=== PATIENT | male | born 1990 | race Caucasian/White ===

== ENCOUNTER 2023-11-12 08:30 | Outpatient (AMB) | payer BC, SELFPAY ==
--- NOTE | 2023-11-12 08:34 | MHC.PC.OV ---
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: No Allergies No Known Allergies Allergy (Verified 11/12/23 08:49) Medication List - Last Reconciled 11/12/23 by Dannielle Lemons CNP atorvastatin 20 mg PO BEDTIME coenzyme Q10 (CoQ-10) 100 mg PO DAILY multivitamin (Daily Multi-Vitamin tablet) 1 tab PO DAILY valacyclovir (Valtrex) 500 mg PO BID Tobacco use date assessed: 11/12/23 Dental Screening Dental Screen Date: 11/12/23 Did you have a dental visit in the last 12 months?: Yes Did you have a dental problem in the last 6 months where you did not have access to dental care?: No Was dental information given to patient?: Patient has dentist HPI HPI Comments History of Present Illness Details New patient Prior PCP:?[facility] Cesar Blair Last office visit/CPE: About 6-7 months Acute issue(s): Hyperlipidemia -He is on atorvastatin 20 mg daily at bedtime and CoQ-10 Herpes simplex 1 -He is on valacyclovir 500 BID PRN He notes that he generally eats and sleeps well. He does intermittent fasting. He does not exercise No acute symptoms at this time PMHx: Hyperlipidemia, herpes simplex 1, Gilbert's syndrome, astigmatism of both eyes SurgHx: Laser eye surgery ([place]) 2019 FHx: Dad: HTN, gout. Mother: depression SocHx: Nonsmoker. Drinks 1-2 cocktails 3 times monthly. No recreational drugs Last eye exam was about 3 years ago Last tetanus vaccine was in 2017 [facility] Family History (Updated 11/12/23 @ 08:43 by Edna Pollard) Mother FH: mental illness Social History Housing: House Patient Tobacco Use Status: Never used Tobacco e-Cigarette/Vaping Use: Never Used Second Hand Smoke Exposure: No service: No Current occupational status: unemployed Current occupation: [employer] Current occupational exposures/hazards: No Cognitive needs: No Hearing needs: No Vision needs: No Questionnaire PHQ-9 Over the last 2 weeks, how often have you been bothered by any of the following problems? 1. Little interest or pleasure in doing things: not at all 2. Feeling down, depressed, or hopeless: not at all 3. Trouble falling or staying asleep, or sleeping too much: not at all 4. Feeling tired or having little energy: not at all 5. Poor appetite or overeating: not at all 6. Feeling bad about yourself - or that you are a failure or have let yourself or your family down: not at all 7. Trouble concentrating on things, such as reading the newspaper or watching television: not at all 8. Moving or speaking so slowly that other people could have noticed. Or the opposite - being so fidgety or restless that you have been moving around a lot more than usual: not at all 9. Thoughts that you would be better off or of hurting yourself in some way: not at all Total score: 0 Depression Screening Interpretation: Negative Depression Screening Done: Yes 30552 - PHQ-9 Billing: Yes Source: Developed by Drs. Fish Daly, Annamarie Lewis, Woody Grayson and colleagues, with an educational cj from [employer]. Thrive Questionnaire Date Thrive assessed: 11/12/23 I am a: Patient What is your living situation today?: I have a steady place to live Within the past 12 months, did the food you bought not last and you didn't have the money to get more?: Never true Within the past 12 months, did you worry whether your food would run out before you got money to buy more?: Never true Do you have trouble paying for medicines?: No Do you have trouble getting transportation to medical appointments?: No Do you have trouble paying your heating and electricity bill?: No Do you have trouble taking care of your child, family member or friend?: No Do you have trouble with day-to-day activities such as bathing, preparing meals, shopping, managing finances, etc.?: No Are you currently unemployed and looking for a job?: No Are you interested in more education?: No Please select the resources that you would like help with: None Currently or been in a relationship where the following occur: No concerns reported THRIVE Score: 0 AUDIT C Alcohol Use Questionnaire (AUDIT-C) 1. How often do you have a drink containing alcohol?: 2-4 times a month 2. How many drinks containing alcohol do you have on a typical day when you are drinking?: 1 or 2 3. How often do you have six or more drinks on one occasion?: Never Total Score: 2 Score Reviewed/Action Taken: Yes BABAK-7 AMB Questionnaire BABAK-7 Date BABAK - 7 assessed: 11/12/23 Feeling nervous, anxious, or on edge: 0 = Not at all Not being able to stop or control worryin = Not at all Worrying too much about different things: 0 = Not at all Trouble relaxin = Not at all Being so restless that it is hard to sit still: 0 = Not at all Becoming easily annoyed or irritable: 0 = Not at all Feeling afraid as if something awful might happen: 0 = Not at all Total BABAK-7 score (0-4 normal; 5-9 mild; 10-14 moderate; 15-21 severe): 0 Source: Developed by Drs. Fish Daly, Annamarie Lewis, Woody Grayson and colleagues, with an educational cj from [employer]. BABAK-7 Assessment Billing BABAK-7 Assessment Tool: BABAK-7 Assessment 19432 Review of Systems Const Details: Denies chills, Denies fatigue, Denies fever(s), Denies headache(s) and Denies weakness HEENT Denies change in vision, Denies dizziness, Denies headache(s), Denies hearing loss, Denies nasal congestion, Denies sinus pain, Denies sinus pressure and Denies sore throat Card Denies chest pain, Denies lightheadedness, Denies dyspnea and Denies other (palpitations) Resp Denies cough, Denies dyspnea and Denies wheezing GI Denies abdominal pain, Denies melena, Denies hematochezia, Denies change in bowel habits, Denies dyspepsia and Denies nausea Denies hematuria and Denies dysuria Musc Denies abnormal gait, Denies myalgias, Denies arthralgias, Denies numbness and Denies tingling Skin/Breast Denies rash, Denies unusual bruising and Denies wounds Neuro Denies abnormal gait, Denies dizziness, Denies headache(s), Denies memory loss, Denies numbness, Denies Sensory deficit (Neuro), Denies tingling and Denies weakness Psych Denies anxiety, Denies depression and Denies memory loss Endo Denies cold intolerance, Denies fatigue, Denies heat intolerance, Denies polydipsia and Denies polyuria Rich/Lymph Denies easy bleeding and Denies easy bruising Aller/Immun Denies wheezing Physical exam (Primary Care) Vital Signs: Last Vital Signs Temp 97.8 F 11/12/23 08:45 Pulse 96 11/12/23 08:45 Resp 16 11/12/23 08:45 BP 128/78 11/12/23 08:45 Pulse Ox 97 11/12/23 08:45 Oxygen Delivery Method Room Air 11/12/23 08:45 BMI result Body Mass Index 35.7 Tobacco/Smoking Status: Tobacco use Status Tobacco use date assessed 11/12/23 11/12/23 08:44 Patient Tobacco Use Status Never used Tobacco 11/12/23 08:44 e-Cigarette/Vaping Use Never Used 11/12/23 08:44 PHQ-9: PHQ-9 Score PHQ-9: Total score 0 11/12/23 08:54 Depression Screening Interpretation: Negative Thrive Assessment: Date of Thrive Assessment Date Thrive assessed 11/12/23 11/12/23 08:50 Currently or been in a relationship where the following occur: No concerns reported Const Other: General: no acute distress, well developed, alert and awake Nutritional Appearance: well nourished Orientation/consciousness: patient oriented x3 HENMT Head: Yes normocephalic and Yes atraumatic Ears: hearing grossly normal bilaterally and TM's normal bilaterally General nose exam: Normal external nose present and Normal nares present Mouth: Normal oral and palatal mucosa present and moist mucous membranes Teeth and gingiva: dentition normal Throat: Yes oropharynx normal Eyes Pupils: Equal, round and reactive pupils present and Pupil accommodation reflex normal EOM: EOMs intact bilaterally Neck Neck: Yes normal visual inspection, Yes no lymphadenopathy and Yes trachea midline Thyroid: Thyroid normal Carotids: no bruits Lymphatic: no lymphadenopathy noted Chest Chest palpation & inspection: normal inspection of the chest Resp Effort & Inspection: normal respiratory effort Auscultation: clear to auscultation bilaterally Cardio Rate: regular rate Rhythm: regular rhythm Heart sounds: S1 normal heart sound present, S2 normal heart sound present, no gallops, no murmurs and no rubs Bruits: no abdominal aortic bruits and no carotid bruits GI Palpation (GI): No Abdominal aortic bruit present, Soft to palpation, nontender, No hepatosplenomegaly present and No Rebound tenderness present Auscultation: normal bowel sounds General: Yes no CVA tenderness Back/Spine/Pelvis Back: no CVA tenderness Cervical Spine: cervical ROM normal and No Cervical spine tenderness Thoracic/Lumbar Spine: thoraco-lumbar ROM normal, No pain with thoraco-lumbar ROM, No thoracic spinal tenderness and No lumbar spinal tenderness Skin General: warm and dry. Normal skin color. Normal skin turgor Lesions: no lesions Rashes: no rashes Trauma: no lacerations or abrasions Wounds: no wounds Nails: normal Neuro General: patient oriented x3, gait normal and CN's II-XI intact bilaterally Cranial nerves: Yes Equal, round and reactive pupils present Cognition (Neuro): normal cognition Gait exam (Neuro): Normal gait present Motor exam (neuro): 5/5 motor strength present throughout Sensory Exam: No Sensory deficit (Neuro) Deep tendon reflexes (DTR's): Right patellar reflex intensity grade: 2+ and Left patellar reflex intensity grade: 2+ Extrem General: Yes normal to inspection, No edema and No calf tenderness Psych Appearance: grossly normal Affect: normal affect Attitude: cooperative Thought process: Normal thought process present Assessment and Plan Assessment & Plan (1) Normal physical examination, routine: Code(s): Z00.00 - Encounter for general adult medical examination without abnormal findings Plan: No significant physical restrictions or limitations noted Healthy diet and routine exercise encouraged Advised to get lab work and schedule a telehealth visit for labs review in 2-3 weeks Return sooner with symptoms or concerns Verbalized understanding and agreed with the treatment plan (2) Hyperlipidemia: Code(s): E78.5 - Hyperlipidemia, unspecified Plan: Continue to take atorvastatin 20 mg daily at bedtime and CoQ10 100 mg daily Advised to limit foods high in saturated fat and avoid foods high in trans fat Routine exercise encouraged Will check lipid panel levels and make changes as needed Verbalized understanding and agreed with the plan (3) Obesity (BMI 30-39.9): Code(s): E66.9 - Obesity, unspecified Plan: He currently weighs 221 lb, BMI is 35.7 Declines referral to dietitian or weight management He will make healthy lifestyle changes, including diet and exercise He may notify his PCP for dietitian or weight management referral as needed (4) Eye exam, routine: Code(s): Z01.00 - Encounter for examination of eyes and vision without abnormal findings Plan: History of a stigmatism of both eyes, but had laser surgery of both eyes in 2019 Last eye exam was about 3 years ago Ophthalmology referral made for routine eye exam (5) Laboratory tests ordered as part of a complete physical exam (CPE): Code(s): Z00.00 - Encounter for general adult medical examination without abnormal findings Plan: Fasting labs ordered as part of a complete physical exam. Advised to fast for at least 10 hours before getting labs drawn. May drink water Verbalized understanding and agreed with treatment plan. Orders: Orders Comprehensive [place]. Panel Fast Today Z00.00 - Encounter for general adult medical examination without abnormal findings Complete Blood Count Auto Diff Today Z00.00 - Encounter for general adult medical examination without abnormal findings Lipid Panel Today Z00.00 - Encounter for general adult medical examination without abnormal findings TSH reflex Free T4 Today Z00.00 - Encounter for general adult medical examination without abnormal findings UA CC w/rflx Micro + Cult Today Z00.00 - Encounter for general adult medical examination without abnormal findings Referrals Ophthalmology Referral Z01.00 - Encounter for examination of eyes and vision without abnormal findings Coding Level of Care Code New Pt Prev Care 18-39yr([id number] Diagnoses Normal physical examination, routine Z00.00 Hyperlipidemia E78.5 Obesity (BMI 30-39.9) E66.9 Eye exam, routine Z01.00 Laboratory tests ordered as part of a complete physical exam (CPE) Z00.00 Additional Codes BABAK-7 Assessment Billing - BABAK-7 Assessment Tool: BABAK-7 Assessment 30237 ([id number])
[2023-11-12 08:45] VITALS: BP 128/78; PULSE 96; RESP 16; TEMP 36.6; O2SAT 97; BMI 35.7
== END 2023-11-12 09:09 | disposition home or self-care (01) ==
PROVIDERS: Visit Provider Nurse Practitioner Family
DX: Z00.00 Encounter for general adult medical examination without abnormal findings (principal); E78.5 Hyperlipidemia, unspecified; Z68.35 Body mass index [BMI] 35.0-35.9, adult; E66.9 Obesity, unspecified

== ENCOUNTER → 2023-11-12 08:30 | Outpatient (BNVA) | payer BC, SELFPAY | PROVIDERS: Visit Provider Nurse Practitioner Family | DX: Z00.00 Encounter for general adult medical examination without abnormal findings (principal); E78.5 Hyperlipidemia, unspecified; E66.9 Obesity, unspecified; Z68.35 Body mass index [BMI] 35.0-35.9, adult; Z79.899 Other long term (current) drug therapy | CPT/HCPCS: 96127 ==

== ENCOUNTER 2023-11-12 09:24 | Outpatient (REF) | payer BC, SELFPAY ==
[2023-11-12 11:16] LABS: MANUAL DIFF FLAG NO
[2023-11-12 11:24] LABS: Appearance Urine Clear; Color Urine Yellow; Glucose Urine UA Negative (Negative); Leukocyte Esterase Urine Negative (Negative); Nitrite Urine Negative (Negative); PH 6.5 (5.0-9.0); Specific Gravity - Urine <= 1.005 (1.005-1.025); Urine Blood Negative (Negative); Urine Ketones Negative (Negative); Urine Protein Negative (Neg-Trace)
[2023-11-12 11:51] LABS: Basophils Percent Auto 0.6 % (0-2); Eosinophils Absolute Auto 0.2 X10*3/uL (0.0-0.4); Eosinophils Percent Auto 3.3 % (0-4); Hematocrit 43.5 % (42.0-52.0); Hemoglobin 15.1 g/dl (14.0-18.0); Imm Gran Abs Auto 0.02 X10*3/uL (0.00-0.03); Imm Gran Pct Auto 0.4 % (0.0-0.4); Lymphocytes Absolute Auto 1.5 X10*3/uL (1.2-4.9); Lymphocytes Percent Auto 30.1 % (20-40); Mean Corpuscular HGB Conc 34.7 g/dl (31.0-36.0); Mean Corpuscular Hemoglobin 30.5 pg (27.0-33.0); Mean Corpuscular Volume 87.9 fL (80.0-98.0); Mean Platelet Volume 12.3 fL (9.4-12.4); Monocytes Absolute Auto 0.3 X10*3/uL (0.1-1.2); Monocytes Percent Auto 6.4 % (2-11); Neutrophils Absolute Auto 2.9 x10*3/uL (2.0-8.3); Neutrophils Percent Auto 59.2 % (45-73); Platelet Count 198 X10*3/uL (160-400); Red Blood Count 4.95 X10*6/uL (4.60-5.80); Red Cell Distribution Width 11.3 % (11.0-16.0); White Blood Count 4.8 X10*3/uL (4.8-10.8)
[2023-11-12 12:10] LABS: Alanine Aminotransferase 70 U/L (0-40); Albumin Level 4.8 g/dL (3.5-5.0); Alkaline Phosphatase 83 U/L (39-117); Anion Gap 13 (12-20); Aspartate Amino Transferase 37 U/L (5-37); Bilirubin Total 2.4 mg/dL (0.0-1.0); Blood Urea Nitrogen 11 mg/dL (9-16); Calcium 9.9 mg/dL (8.4-10.2); Carbon Dioxide 25 mmol/L (22-29); Chloride 106 mmol/L (96-108); Cholesterol 103 mg/dL (<200); Estimated Glomerular Filt Rate > 60; Glucose Fasting 101 mg/dL (60-99); HDL Cholesterol 30 mg/dL (>40); LDL Cholesterol Calculated 46 mg/dL (<100); Potassium 4.3 mmol/L (3.3-5.1); Sodium 140 mmol/L (135-145); Total Protein 7.1 g/dL (6.5-8.0); Triglycerides 138 mg/dL (<150)
[2023-11-12 12:16] LABS: TSH reflex Free T4 0.83 uIU/mL (0.32-4.0)
== END 2023-11-12 09:25 | disposition home or self-care (01) ==
LOC: HO.WFDLDS 09:24
PROVIDERS: Visit Provider Nurse Practitioner Family
DX: Z00.00 Encounter for general adult medical examination without abnormal findings (principal); Z20.2 Contact with and (suspected) exposure to infections with a predominantly sexual mode of transmission
CPT/HCPCS: 36415; 80053; 80061; 81003; 84443; 85025

== ENCOUNTER 2023-11-27 14:31 | Outpatient (AMB) | payer BC, SELFPAY ==
--- NOTE | 2023-11-27 09:11 | A.OFFPC_ITS ---
Intake Visit Reasons: Lab review Intake Note: lab review Allergies No Known Allergies Allergy (Verified 11/27/23 14:23) Tobacco use date assessed: 11/12/23 Dental Screening Dental Screen Date: 11/12/23 HPI HPI Comments History of Present Illness Details 33-year-old male presents for a teleheal th visit for review of recent lab results He offers no complaints and denies acute symptoms at this time PFSH Family History (Updated 11/12/23 @ 08:43 by Edna Pollard MA) Mother FH: mental illness Social History Housing: House Patient Tobacco Use Status: Never used Tobacco e-Cigarette/Vaping Use: Never Used Second Hand Smoke Exposure: No service: No Current occupational status: unemployed Current occupation: [employer] Current occupational exposures/hazards: No Cognitive needs: No Hearing needs: No Vision needs: No Questionnaire Thrive Questionnaire Date Thrive assessed: 11/12/23 BABAK-7 AMB Questionnaire BABAK-7 Date BABAK - 7 assessed: 11/12/23 Source: Developed by Drs. Fish Daly, Annamarie Lewis, Woody Grayson and colleagues, with an educational cj from [employer]. Review of Systems Const Details: Const Denies chills, Denies fatigue, Denies fever(s), Denies headache(s) and Denies weakness ENT Denies dizziness and Denies headache(s) Card Denies chest pain, Denies lightheadedness, Denies dyspnea and Denies other (Palpitations) Resp Denies cough, Denies dyspnea, Denies wheezing and Denies other ( shortness of breath) GI Denies abdominal pain, Denies melena, Denies hematochezia, Denies change in bowel habits, Denies dyspepsia and Denies nausea Denies hematuria and Denies dysuria Musc Denies abnormal gait, Denies myalgias, Denies arthralgias, Denies numbness and Denies tingling Skin/Breast Denies rash, Denies unusual bruising and Denies wounds Neuro Denies abnormal gait, Denies dizziness, Denies headache(s), Denies memory loss, Denies numbness, Denies Sensory deficit (Neuro), Denies tingling and Denies weakness Psych Denies anxiety, Denies depression, Denies memory loss Endo Denies cold intolerance, Denies fatigue, Denies heat intolerance, Denies polydipsia and Denies polyuria Aller/Immun Denies wheezing Physical exam (Primary Care) Tobacco/Smoking Status: Tobacco use Status Tobacco use date assessed 11/12/23 11/27/23 09:19 Patient Tobacco Use Status Never used Tobacco 11/27/23 09:19 e-Cigarette/Vaping Use Never Used 11/27/23 09:19 Thrive Assessment: Date of Thrive Assessment Date Thrive assessed 11/12/23 11/27/23 09:19 Const Other: Telehealth visit. No physical exam Telehealth Telehealth Telehealth Platform: Telephone Location of provider rendering services: practice address Location of patient: address on file Patient Identification confirmed using: Name, : Yes Telehealth method: voice only Patient verbally consented to treatment: Yes Patient verbally consented to billing insurance company: Yes Patient informed of any privacy concerns related to visit: Yes Coding Level of Care Code Tele New Pt Level 4 (75458) Diagnoses Elevated ALT measurement R74.01 Gilbert's syndrome E80.4 Elevated fasting glucose R73.01 Hyperlipidemia E78.5 Time Spent (min) 15 Assessment & Plan Assessment & Plan (1) Elevated ALT measurement: Code(s): R74.01 - Elevation of levels of liver transaminase levels Category: Medical Plan: Recent ALT level is elevated, 70. AST and alk phos levels are normal Likely secondary to hepatic steatosis Will repeat liver panel in a month and make changes as needed Advised to fast for 10-12 hours, may drink water only, and get blood work done before his next visit Follow-up in 1 month for telehealth visit for labs review or sooner with symptoms or concerns Verbalized understanding and agreed with the plan (2) Gilbert's syndrome: Code(s): E80.4 - Gilbert syndrome Category: Medical Plan: Recent total bilirubin level is elevated, 2.4. ALT is elevated, 70. AST and alk-phos levels are normal He has history of Gilbert's syndrome and is elevated bilirubin level is likely attributed to this Will monitor periodically or if symptomatic Verbalized understanding and agreed with the plan (3) Elevated fasting glucose: Code(s): R73.01 - Impaired fasting glucose Category: Medical Plan: Recent fasting glucose is slightly elevated, 101 Will repeat fasting glucose and make changes as needed Healthy diet encouraged Verbalized understanding and agreed with the plan (4) Hyperlipidemia: Code(s): E78.5 - Hyperlipidemia, unspecified Category: Medical Plan: Recent triglycerides, total cholesterol, and LDL levels are normal. HLD level is low, 30 Advised to limit foods high in saturated fat and avoid foods high in trans fat Routine exercise encouraged Will monitor periodically Verbalized understanding and agreed with the plan Orders: Orders Liver Panel Today R74.01 - Elevation of levels of liver transaminase levels Glucose Fasting 1 Month R73.01 - Impaired fasting glucose
== END 2023-11-27 15:18 | disposition home or self-care (01) ==
LOC: HO.HMCFM 14:31
PROVIDERS: PCP Nurse Practitioner Family; Visit Provider Nurse Practitioner Family
DX: R74.01 Elevation of levels of liver transaminase levels (principal); E80.4 Gilbert syndrome; R73.01 Impaired fasting glucose; E78.5 Hyperlipidemia, unspecified

== ENCOUNTER → 2023-11-27 14:31 | Outpatient (BNVA) | payer BC, SELFPAY | PROVIDERS: Visit Provider Nurse Practitioner Family ==

== ENCOUNTER 2023-12-23 07:32 | Outpatient (REF) | payer BC, SELFPAY ==
[2023-12-23 12:15] LABS: Alanine Aminotransferase 89 U/L (0-40); Albumin Level 4.8 g/dL (3.5-5.0); Alkaline Phosphatase 83 U/L (39-117); Aspartate Amino Transferase 49 U/L (5-37); Bilirubin Direct 0.5 mg/dL (0.0-0.5); Bilirubin Total 2.4 mg/dL (0.0-1.0); Glucose Fasting 93 mg/dL (60-99); Total Protein 6.9 g/dL (6.5-8.0)
== END 2023-12-23 07:33 | disposition home or self-care (01) ==
LOC: HO.WFDLDS 07:32
PROVIDERS: Visit Provider Nurse Practitioner Family
DX: R73.01 Impaired fasting glucose (principal); R74.01 Elevation of levels of liver transaminase levels
CPT/HCPCS: 36415; 80076; 82947

== ENCOUNTER 2023-12-29 13:36 | Outpatient (AMB) | payer BC, SELFPAY ==
--- NOTE | 2023-12-29 13:32 | MHC.PC.OV ---
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: No Allergies No Known Allergies Allergy (Verified 12/29/23 13:33) Tobacco use date assessed: 12/29/23 Dental Screening Dental Screen Date: 11/12/23 HPI HPI Comments History of Present Illness Details 33-year-old male presents for telehealth visit for review of recent lab results He admits to taking his medications as prescribed without adverse reactions He offers no complaints and denies acute symptoms at this time PFSH Family History (Updated 11/12/23 @ 08:43 by Edna Pollard MA) Mother FH: mental illness Social History Housing: House Patient Tobacco Use Status: Never used Tobacco e-Cigarette/Vaping Use: Never Used Second Hand Smoke Exposure: No service: No Current occupational status: unemployed Current occupation: [employer] Current occupational exposures/hazards: No Cognitive needs: No Hearing needs: No Vision needs: No Questionnaire Thrive Questionnaire Date Thrive assessed: 11/12/23 BABAK-7 AMB Questionnaire BABAK-7 Date BABAK - 7 assessed: 11/12/23 Source: Developed by Drs. Fish Daly, Annamarie Lewis, Woody Grayson and colleagues, with an educational cj from [employer]. Review of Systems Const Details: Const Denies chills, Denies fatigue, Denies fever(s), Denies headache(s) and Denies weakness ENT Denies dizziness and Denies headache(s) Card Denies chest pain, Denies lightheadedness, Denies dyspnea and Denies other (Palpitations) Resp Denies cough, Denies dyspnea, Denies wheezing and Denies other ( shortness of breath) GI Denies abdominal pain, Denies melena, Denies hematochezia, Denies change in bowel habits, Denies dyspepsia and Denies nausea Denies hematuria and Denies dysuria Musc Denies abnormal gait, Denies myalgias, Denies arthralgias, Denies numbness and Denies tingling Skin/Breast Denies rash, Denies unusual bruising and Denies wounds Neuro Denies abnormal gait, Denies dizziness, Denies headache(s), Denies memory loss, Denies numbness, Denies Sensory deficit (Neuro), Denies tingling and Denies weakness Psych Denies anxiety, Denies depression, Denies memory loss Endo Denies cold intolerance, Denies fatigue, Denies heat intolerance, Denies polydipsia and Denies polyuria Aller/Immun Denies wheezing Physical exam (Primary Care) Tobacco/Smoking Status: Tobacco use Status Tobacco use date assessed 12/29/23 12/29/23 13:35 Patient Tobacco Use Status Never used Tobacco 12/29/23 13:35 e-Cigarette/Vaping Use Never Used 12/29/23 13:35 Thrive Assessment: Date of Thrive Assessment Date Thrive assessed 11/12/23 12/29/23 13:35 Const Other: Telehealth visit. No physical exam Telehealth Telehealth Telehealth Platform: Telephone Location of provider rendering services: practice address Location of patient: address on file Patient Identification confirmed using: Name, : Yes Telehealth method: voice only Patient verbally consented to treatment: Yes Patient verbally consented to billing insurance company: Yes Patient informed of any privacy concerns related to visit: Yes Coding Level of Care Code Est Pt Level 3 (16035) Diagnoses Elevated ALT measurement R74.01 Gilbert's syndrome E80.4 Time Spent (min) 10 Assessment & Plan Assessment & Plan (1) Elevated ALT measurement: Code(s): R74.01 - Elevation of levels of liver transaminase levels Category: Medical Plan: Recent lab results reviewed with the patient. Repeat AST and ALT are slightly elevated, 49 and 84 respectively No acute symptoms Hepatic steatosis is likely Will monitor periodically or based on symptoms Advised to get fasting lipid panel blood work done 2-3 days before his next visit Follow-up in 2 months or sooner with symptoms or concerns Verbalized understanding and agreed with the plan (2) Gilbert's syndrome: Code(s): E80.4 - Gilbert syndrome Category: Medical Plan: Recent bilirubin level is 2.4 Orders: Orders Lipid Panel 2 Months E78.5 - Hyperlipidemia, unspecified
== END 2023-12-29 15:19 | disposition home or self-care (01) ==
LOC: HO.HMCFM 13:36
PROVIDERS: PCP Nurse Practitioner Family; Visit Provider Nurse Practitioner Family
DX: R74.01 Elevation of levels of liver transaminase levels (principal); E80.4 Gilbert syndrome

== ENCOUNTER → 2023-12-29 13:36 | Outpatient (BNVA) | payer BC, SELFPAY | PROVIDERS: PCP Nurse Practitioner Family; Visit Provider Nurse Practitioner Family ==

== ENCOUNTER 2024-02-29 08:18 | Outpatient (AMB) | payer BC, SELFPAY ==
--- NOTE | 2024-02-29 08:21 | A.OFFPC_ITS ---
Vital Signs 02/29/24 08:27 Height 5 ft 6 in Weight 225 lb 8 oz BMI 36.4 BP 136/76 Blood Pressure Location Rt brachial Position Sitting Respiration 16 Pulse 88 Pulse Source Pulse Oximeter Temp 98.2 F Temp Source Oral Pulse Oximetry (%) 96 Oxygen Delivery Method Room Air Intake Visit Reasons: 2month f/u Intake Note: patient here for follow up Application Penetration Tester Required: No Allergies No Known Allergies Allergy (Verified 02/29/24 08:38) Medication List - Last Reconciled 02/29/24 by Dannielle Lemons CNP atorvastatin 20 mg PO BEDTIME 30 days coenzyme Q10 (CoQ-10) 100 mg PO DAILY multivitamin (Daily Multi-Vitamin tablet) 1 tab PO DAILY valacyclovir (Valtrex) 500 mg PO BID Tobacco use date assessed: 02/29/24 Dental Screening Dental Screen Date: 02/29/24 Did you have a dental visit in the last 12 months?: Yes Did you have a dental problem in the last 6 months where you did not have access to dental care?: No Was dental information given to patient?: Patient has dentist HPI HPI Comments History of Present Illness Details 33-year-old male presents for hyperlipid emia follow-up. He admits to taking his medications as prescribed without adverse reactions. He has been making healthy dietary choices and exercising routinely. He offers no complaints and denies acute symptoms at this time. He forgot to get lipid panel blood work done for this visit as planned. [facility] Family History (Updated 11/12/23 @ 08:43 by Edna Pollard MA) Mother FH: mental illness Social History Housing: House Patient Tobacco Use Status: Never used Tobacco e-Cigarette/Vaping Use: Never Used Second Hand Smoke Exposure: No service: No Current occupational status: unemployed Current occupation: [employer] Current occupational exposures/hazards: No Cognitive needs: No Hearing needs: No Vision needs: No Questionnaire PHQ-9 Over the last 2 weeks, how often have you been bothered by any of the following problems? 1. Little interest or pleasure in doing things: not at all 2. Feeling down, depressed, or hopeless: not at all 3. Trouble falling or staying asleep, or sleeping too much: several days 4. Feeling tired or having little energy: several days 5. Poor appetite or overeating: not at all 6. Feeling bad about yourself - or that you are a failure or have let yourself or your family down: not at all 7. Trouble concentrating on things, such as reading the newspaper or watching television: not at all 8. Moving or speaking so slowly that other people could have noticed. Or the opposite - being so fidgety or restless that you have been moving around a lot more than usual: not at all 9. Thoughts that you would be better off or of hurting yourself in some way: not at all Total score: 2 Depression Screening Interpretation: Negative Depression Screening Done: Yes 41228 - PHQ-9 Billing: Yes Source: Developed by Drs. Fish Daly, Annamarie Lewis, Woody Grayson and colleagues, with an educational cj from [employer]. Thrive Questionnaire Date Thrive assessed: 02/29/24 I am a: Patient What is your living situation today?: I have a steady place to live Within the past 12 months, did the food you bought not last and you didn't have the money to get more?: Never true Within the past 12 months, did you worry whether your food would run out before you got money to buy more?: Never true Do you have trouble paying for medicines?: No Do you have trouble getting transportation to medical appointments?: No Do you have trouble paying your heating and electricity bill?: No Do you have trouble taking care of your child, family member or friend?: No Do you have trouble with day-to-day activities such as bathing, preparing meals, shopping, managing finances, etc.?: No Are you currently unemployed and looking for a job?: No Are you interested in more education?: No Please select the resources that you would like help with: None Currently or been in a relationship where the following occur: No concerns reported THRIVE Score: 0 AUDIT C Alcohol Use Questionnaire (AUDIT-C) 1. How often do you have a drink containing alcohol?: Monthly or less 2. How many drinks containing alcohol do you have on a typical day when you are drinking?: 1 or 2 3. How often do you have six or more drinks on one occasion?: Never Total Score: 1 BABAK-7 AMB Questionnaire BABAK-7 Date BABAK - 7 assessed: 02/29/24 Feeling nervous, anxious, or on edge: 0 = Not at all Not being able to stop or control worryin = Not at all Worrying too much about different things: 0 = Not at all Trouble relaxin = Not at all Being so restless that it is hard to sit still: 0 = Not at all Becoming easily annoyed or irritable: 0 = Not at all Feeling afraid as if something awful might happen: 0 = Not at all Total BABAK-7 score (0-4 normal; 5-9 mild; 10-14 moderate; 15-21 severe): 0 Source: Developed by Drs. Fish Daly, Annamarie Lewis, Woody Grayson and colleagues, with an educational cj from [employer]. BABAK-7 Assessment Billing BABAK-7 Assessment Tool: BABAK-7 Assessment 04168 Review of Systems Const Details: Const Denies chills, Denies fatigue, Denies fever(s), Denies headache(s) and Denies we akness ENT Denies dizziness and Denies headache(s) Card Denies chest pain, Denies lightheadedness, Denies dyspnea and Denies other (Palpitations) Resp Denies cough, Denies dyspnea, Denies wheezing and Denies other ( shortness of breath) GI Denies abdominal pain, Denies melena, Denies hematochezia, Denies change in bowel habits, Denies dyspepsia and Denies nausea Denies hematuria and Denies dysuria Musc Denies abnormal gait, Denies myalgias, Denies arthralgias, Denies numbness and Denies tingling Skin/Breast Denies rash, Denies unusual bruising and Denies wounds Neuro Denies abnormal gait, Denies dizziness, Denies headache(s), Denies memory loss, Denies numbness, Denies Sensory deficit (Neuro), Denies tingling and Denies weakness Psych Denies anxiety, Denies depression, Denies memory loss Endo Denies cold intolerance, Denies fatigue, Denies heat intolerance, Denies polydipsia and Denies polyuria Aller/Immun Denies wheezing Physical exam (Primary Care) Vital Signs: Last Vital Signs Temp 98.2 F 02/29/24 08:27 Pulse 88 02/29/24 08:27 Resp 16 02/29/24 08:27 BP 136/76 02/29/24 08:27 Pulse Ox 96 02/29/24 08:27 Oxygen Delivery Method Room Air 02/29/24 08:27 BMI result Body Mass Index 36.4 Tobacco/Smoking Status: Tobacco use Status Tobacco use date assessed 02/29/24 02/29/24 08:31 Patient Tobacco Use Status Never used Tobacco 02/29/24 08:22 e-Cigarette/Vaping Use Never Used 02/29/24 08:22 PHQ-9: PHQ-9 Score PHQ-9: Total score 2 02/29/24 08:31 Depression Screening Interpretation: Negative Thrive Assessment: Date of Thrive Assessment Date Thrive assessed 02/29/24 02/29/24 08:31 Currently or been in a relationship where the following occur: No concerns reported Const Other: General: no acute distress and well developed Nutritional Appearance: well nourished Orientation/consciousness: patient oriented x3 HENMT Head: Yes normocephalic and Yes atraumatic Eyes General: appearance normal, both eyes and all related structures Pupils: Equal, round and reactive pupils present EOM: EOMs intact bilaterally Resp Effort & Inspection: normal respiratory effort Auscultation: clear to auscultation bilaterally Cardio Rate: regular rate Rhythm: regular rhythm Heart sounds: S1 normal heart sound present, S2 normal heart sound present, no gallops, no murmurs and no rubs GI Palpation (GI): No Abdominal aortic bruit present, Soft to palpation, nontender, No hepatosplenomegaly present and No Rebound tenderness present Auscultation: normal bowel sounds General: Yes no CVA tenderness Back/Spine/Pelvis Back: no CVA tenderness Cervical Spine: cervical ROM normal and No Cervical spine tenderness Thoracic/Lumbar Spine: thoraco-lumbar ROM normal, No pain with thoraco-lumbar ROM, No thoracic spinal tenderness and No lumbar spinal tenderness Extrem General: Yes normal to inspection, No edema and No calf tenderness Skin General: warm and dry. Normal skin color. Normal skin turgor Neuro General: patient oriented x3, gait normal and no focal neuro deficit Cranial nerves: Yes Equal, round and reactive pupils present Cognition (Neuro): normal cognition Gait exam (Neuro): Normal gait present Sensory Exam: No Sensory deficit (Neuro) Psych Appearance: grossly normal Affect: normal affect Attitude: cooperative Thought process: Normal thought process present Coding Level of Care Code Est Pt Level 3 (13851) Diagnoses Hyperlipidemia E78.5 Additional Codes BABAK-7 Assessment Billing - BABAK-7 Assessment Tool: BABAK-7 Assessment 63398 ([id number]) PHQ-9 - 20067 - PHQ-9 Billing: Yes ([id number]) Assessment & Plan Assessment & Plan (1) Hyperlipidemia: Code(s): E78.5 - Hyperlipidemia, unspecified Category: Medical Plan: He forgot to get lipid panel blood work done for this visit as planned. He will get the blood work done tomorrow. Will review results and make changes as needed. Advised to fast for 10:12 hours, may drink water only, and get blood work done 2-3 days before next visit. Follow-up in 3 months or sooner with symptoms or concerns. Verbalized understanding and agreed with treatment plan. Orders: Orders Lipid Panel 3 Months E78.5 - Hyperlipidemia, unspecified
[2024-02-29 08:27] VITALS: BP 136/76; PULSE 88; RESP 16; TEMP 36.8; O2SAT 96; BMI 36.4
== END 2024-02-29 08:43 | disposition home or self-care (01) ==
PROVIDERS: PCP Nurse Practitioner Family; Visit Provider Nurse Practitioner Family
DX: E78.5 Hyperlipidemia, unspecified (principal)

== ENCOUNTER → 2024-02-29 08:18 | Outpatient (BNVA) | payer BC, SELFPAY | PROVIDERS: PCP Nurse Practitioner Family; Visit Provider Nurse Practitioner Family | DX: E78.5 Hyperlipidemia, unspecified (principal) | CPT/HCPCS: 96127 ==

== ENCOUNTER 2024-03-01 07:40 | Outpatient (REF) | payer BC, SELFPAY ==
[2024-03-01 12:12] LABS: Cholesterol 114 mg/dL (<200); HDL Cholesterol 29 mg/dL (>40); LDL Cholesterol Calculated 42 mg/dL (<100); Triglycerides 215 mg/dL (<150)
== END 2024-03-01 07:41 | disposition home or self-care (01) ==
LOC: HO.WFDLDS 07:40
PROVIDERS: Visit Provider Nurse Practitioner Family
DX: E78.5 Hyperlipidemia, unspecified (principal)
CPT/HCPCS: 36415; 80061

== ENCOUNTER 2024-05-27 07:51 | Outpatient (REF) | payer BC, SELFPAY ==
--- OUTSIDE RECORDS SUMMARY | 2024-05-27 07:55 | XMS_ITS ---
Author Organization [facility] Address [address] [place] [phone] Care Team Providers Care Auto Body Estimator Name Role Phone DRE FARRIS Primary Care Provider [phone] NEYDA LINO Unavailable [phone] ALLERGIES Allergen (clinical drug ingredient) Drug/Non Drug Allergy documented on EMR Reaction Allergy Type Onset Date Status Seasonal (uncoded) Runny nose, itchy eyes Allergy Active REASON FOR VISIT f/u lab review MEDICATIONS Medication SIG (Take, Route, Frequency, Duration) Notes Start Date End Date Status Vitamin D (Cholecalciferol) 50 MCG (1999) 2.5 capsules Orally Once a day Active Osteo Bi-Flex One Per Day Active Multi Complete - as directed Orally Active CoQ10 100 MG 1 cap Orally twice a day for 90 days 12/24/2022 Active Atorvastatin Calcium 20 MG 1 tablet Orally Once a day for 90 days 01/20/2023 Active Medrol 4 MG as directed Orally daily for 6 days 03/26/2023 Not-Taking valACYclovir HCl 500 MG 1 tablet Orally twice a day for 90 days 06/24/2023 Active SOCIAL HISTORY Tobacco Use: Social History Observation Description Date Details (start date - stop date) Never Smoker NA - NA Sex Assigned At : Social History Observation Description Sex Assigned At Unknown Tobacco Use/Smoking Question Answer Notes Tobacco use: nonsmoker Section Notes: Lives in [place], [place] with brother and sister in law. PROBLEMS Problem Type ICD Code Onset Dates Problem Status W/U Status Risk SNOMED Code Notes Problem CKD (chronic kidney disease) stage 1, GFR 90 ml/min or greater (N18.1) Active confirmed Chronic kidn ey disease stage 1 (149223153) Problem Insulin resistance syndrome (E88.810) Active confirmed Insulin resistance syndrome (351718456) VITAL SIGNS Height 67 in 04/28/2023 Height-cm 170.18 cm 04/28/2023 Encounters Encounter Location Date Provider Diagnosis [address] [place], [place] [id number] 04/28/2023 NEYDA LINO Elevated liver enzym es R74.8 ; Mixed hyperlipidemia E78.2 ; Elevated C-reactive protein (CRP) R79.82 ; CKD (chronic kidney disease) stage 1, GFR 90 ml/min or greater N18.1 ; Insulin resistance syndrome E88.810 ; Gilbert syndrome E80.4 and Loose stools R19.5 ASSESSMENTS Encounter Date Diagnosis Assessment Notes Treatment Notes Treatment Clinical Notes Section Notes 04/28/2023 Elevated liver enzymes (ICD-10 - R74.8) fatty liver No increase in numbers with statin therapy Will continue med and continue to monitor Limit ETOH and tylenol 04/28/2023 Mixed hyperlipidemia (ICD-10 - E78.2) Continue current statin; tolerating very well and has had great response Low fat, low cholesterol diet Exercise Check lipids, LFTs periodically 04/28/2023 Elevated C-reactive protein (CRP) (ICD-10 - R79.82) Low inflammatory diet Increased exercise Statin therapy as has resonded nicely 04/28/2023 CKD (chronic kidney disease) stage 1, GFR 90 ml/min or greater (ICD-10 - N18.1) Emphasized need to increase water in diet Cr above 1.0 Admits to not enough hydration Use ibuprofen sparingly 04/28/2023 Insulin resistance syndrome (ICD-10 - E88.810) discussed resuming IF as levels have decreased but still remains elevated Will continue to monitor 04/28/2023 Gilbert syndrome (ICD-10 - E80.4) Bilirubin remains elevated but lower than in past Continue to monitor periodically 04/28/2023 Loose stools (ICD-10 - R19.5) Loose stools with int blood Admit to hemorrhoids; encouraged prep H with any hemorrhoid To start Metamucil daily Will follow up in 6 months, sooner prn 04/28/2023 Other Total time spen t with patient 20 minutes which includes face to face visit, education and coordination of care. PLAN OF TREATMENT Treatment Notes Assessment Notes Elevated liver enzymes fatty liver No increase in numbers with statin therapy Will continue med and continue to monitor Limit ETOH and tylenol Mixed hyperlipidemia Continue current statin; tolerating very well and has had great response Low fat, low cholesterol diet Exercise Check lipids, LFTs periodically Elevated C-reactive protein (CRP) Low inflammatory diet Increased exercise Statin therapy as has resonded nicely CKD (chronic kidney disease) stage 1, GFR 90 ml/min or greater Emphasized need to increase water in diet Cr above 1.0 Admits to not enough hydration Use ibuprofen sparingly Insulin resistance syndrome discussed resuming IF as levels have decreased but still remains elevated Will continue to monitor Gilbert syndrome Bilirubin remains elevated but lower than in past Continue to monitor periodically Loose stools Loose stools with int blood Admit to hemorrhoids; encouraged prep H with any hemorrhoid To start Metamucil daily Will follow up in 6 months, sooner prn Other Total time spent wit h patient 20 minutes which includes face to face visit, education and coordination of care. Next Appt Details Follow Up: 6 Months, Reason: follow up wellness/stools Progress Notes * HI GONZALEZIODOB:1990 (32 yo M)Acc No.[id number]:04/28/2023 Progress Note Patient:??AR GONZALEZ Provider:??NEYDA LINO NP :1990?Age:32 Y?Sex:Ma le Date:04/28/2023 Phone: Address:[address] [place] [address] Pcp:DRE FARRIS Subjective: * Chief Complaints: * ?F/u lab review * HPI: ?Patient Care Team:? Providers/Specialists: No other providers at this time. ?Visit info:? The patient consents to HIPAA compliant telehealth visit using video platform within EHR system. The patient states they are in a private location in their home and the provider is located in the office in a private room. ?Patient presents via video for a telehealth visit to go over his most recent lab results. ?-tolerating statin well ?-Stopped IF after COVID ?-Happy with new lipid levels ?-Over the past 1-2 years 3 loose stools day with sometime blood in the bowl. Maybe once every 2-3 months. Has had hemorrhoids as well. * ROS:?all systems reviewed and are non-contributory unless specified in the HPI. * Medical History:?? * Surgical History:??[facility] Te [facility] Lasik Eye Surgery * Hospitalization/Major Diagno stic Procedure:?? * Family History:??Paternal un trish: alive, Stroke.??Father: alive, Stroke, Hypertension.??Mother: alive, Depression, Osteoporosis.??Paternal Grandfather: , Unknown health history.??Paternal Grandmother: alive, Parkinson's disease.??Maternal Grandfather: , Alzheimer's.??Maternal Grandmother: alive, Breast tumor - benign.??Brother: alive, Hyperlipidemia.?? * Social History:?Tobacco Use:??Tobacco Use/Smoking??Tobacco use:??nonsmoker.?Drugs/Alcohol:??Do you smoke marijuana?: Denies. Do you drink alcohol?: Yes, Socially - 2 x/mo or special occasion. ?Lives in [place], [place] with brother and sister in law. * Medications:??TakingVitamin D (Cholecalciferol) 50 MCG (1999 UT) Capsule 2.5 capsules Orally Once a day takes 5000iu dailyOsteo Bi-Flex One Per Day Multi Complete - Capsule as directed Orally CoQ10 100 MG Capsule 1 cap Orally twice a day Atorvastatin Calcium 20 MG Tablet 1 tablet Orally Once a day valACYclovir HCl 500 MG Tablet 1 tablet Orally twice a day As needed as directed at onset, stop date 06/24/2023Taking Vitamin D (Cholecalciferol) 50 MCG (1999 UT) Capsule 2.5 capsules Orally Once a day takes 5000iu dailyTaking Osteo Bi-Flex One Per Day Taking Multi Complete - Capsule as directed Orally Taking CoQ10 100 MG Capsule 1 cap Orally twice a day Taking Atorvastatin Calcium 20 MG Tablet 1 tablet Orally Once a day Taking valACYclovir HCl 500 MG Tablet 1 tablet Orally twice a day As needed as directed at onset, stop date 06/24/2023Not-TakingMedrol 4 MG Tablet Therapy Pack as directed Orally daily take as packaged directedMedication List reviewed and reconciled with the patientNot- Taking Medrol 4 MG Tablet Therapy Pack as directed Orally daily take as packaged directedMedication List reviewed and reconciled with the patient * Allergies:??Seasonal: Runny nose, itchy eyes - Allergy Objective: * Vitals:??BP: Not Taken - Tel [facility], Ht: 67 in, Ht-cm: 170.18 cm. * Examination: ?General Examination: ?GEN: NAD, speaking in full complete sentences, thoughts clear and appropriate ?RESP: nonlabored breathing, no audible SOB/Wheezing ?NEURO: AO x 3 ?PSYCH: judgment/insight intact, NL mood/affect. Assessment: * Assessment: 1.??Mixed hyperlipidemia - E 78.2 (Primary)??2.??Elevated liver enzymes - R74.8??3.??Elevated C-reactive protein (CRP) - R79.82??4.??CKD (chronic kidney disease) stage 1, GFR 90 ml/min or greater - N18.1??5.??Insulin resistance syndrome - E88.810??6.??Gilbert syndrome - E80.4??7.??Loose stools - R19.5?? Plan: * Treatment: 2.??Elevated liver enzymes?? Notes: fatty liver No increase in numbers with statin therapy Will continue med and continue to monitor Limit ETOH and tylenol? 3.??Elevated C-reactive prot ein (CRP)?? Notes: Low inflammatory diet Increased exercise Statin therapy as has resonded nicely ? 4.??CKD (chronic kidney dise ase) stage 1, GFR 90 ml/min or greater?? Notes: Emphasized need to increase water in diet Cr above 1.0 Admits to not enough hydration Use ibuprofen sparingly ? 5.??Insulin resistance syndr ome?? Notes: discussed resuming IF as levels have decreased but still remains elevated Will continue to monitor? 6.??Gilbert syndrome?? Notes: Bilirubin remains elevated but lower than in past Continue to monitor periodically? 7.??Loose stools?? Notes: Loose stools with int blood Admit to hemorrhoids; encouraged prep H with any hemorrhoid To start Metamucil daily Will follow up in 6 months, sooner prn? 8.??Others?? Notes: Total time spent with patient 20 minutes which includes face to face visit, education and coordination of care.? * Procedure Codes:?? * Preventive Medicine:?Last CPE: 2020 w/Dr. Meet Fernandez Colonoscopy: No Endoscopy: No COVID Vac: Yes Flu Vac: No. * Follow Up:??6 Months (Reason : follow up wellness/stools) * Billing Information: * Visit Code:?? 66824 Office Visit, Est Pt., Level 3. * Procedure Codes:?? * Sign off status: Completed true * Provider:??NEYDA LINO NP Date:?? History and Physical Notes * HPI (History of Present Illness) Category Sub-Category Detail Notes Category Not es Patient Care Team Providers/ Specialists: No other providers at this time Visit info The patient consents to HIPAA compliant telehealth visit using video platform within EHR system. The patient states they are in a private location in their home and the provider is located in the office in a private room. Patient presents via video for a telehealth visit to go over his most recent lab results. -tolerating statin well -Stopped IF after COVID -Happy with new lipid levels -Over the past 1-2 years 3 loose stools day with sometime blood in the bowl. Maybe once every 2-3 months. Has had hemorrhoids as well Examination Category Sub-Category Detail Notes Category Not es General Examination GEN: NAD, speaking in full complete sentences, thoughts clear and appropriate RESP: nonlabored breathing, no audible SOB/Wheezing NEURO: AO x 3 PSYCH: judgment/insight intact, NL mood/affect
--- OUTSIDE RECORDS SUMMARY | 2024-05-27 07:55 | XMS_ITS | Patient Health Record ---
Author Organization [facility] Address [address] [phone] Support Name Relationship Address Phone Whitaker, Wilder Guarantor Unknown [phone] Allergies Allergen (clinical drug ingredient) Drug/Non Drug Allergy documented on EMR Reaction Allergy Type Onset Date Status No Known Drug Allergy Unknown Drug Allergy Active No Known Food Allergy Unknown Drug Allergy Active Reason For Referral No Information Medications Medication SIG (Take, Route, Fr equency, Duration) Notes Start Date End Date Status [place] 3 Active Multi Vitamin - 1 tablet Orally Once a day Active Ubrelvy 50 MG 1 tablet may take se cond dose at least 2 hours after first dose as needed Orally Once a day for 30 day(s) 10/16/2020 Active Ubrelvy 50 MG 1 tablet may take se cond dose at least 2 hours after first dose as needed Orally Once a day for 30 day(s) 07/02/2020 Active Ubrelvy 50 MG 1 tablet may take se cond dose at least 2 hours after first dose as needed Orally Once a day for 30 day(s) 08/21/2020 Active Social History Household Question Answer Notes Marital status: not answered Number of adults in household: n ot answered Number of children in household: not answered [employer]aritan: not answered Level of education: not answered Family yearly income: not answer ed Tobacco use other than smoking: Question Answer Notes Are you an other tobacco user? 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
--- OUTSIDE RECORDS SUMMARY | 2024-05-27 07:55 | XMS_ITS ---
Author Organization [facility] [employer] Address [address] [place] [id number] Care Team Providers Care Law Researcher Name Role Phone KRISTI FARRISFER Primary Care Provider NEYDA LINO Unavailable [phone] ALLERGIES Allergen (clinical drug ingredient) Drug/Non Drug Allergy documented on EMR Reaction Allergy Type Onset Date Status Seasonal (uncoded) Runny nose, itchy eyes Allergy Active REASON FOR VISIT F/U SICK, COUGH MEDICATIONS Medication SIG (Take, Route, Frequency, Duration) Notes Start Date End Date Status Multi Complete - as directed Orally Active Medrol 4 MG as directed Orally d aily for 6 days 03/26/2023 Active valACYclovir HCl 500 MG 1 tablet Orally twice a day for 90 days 06/24/2023 Active CoQ10 100 MG 1 cap Orally twice a day for 90 days 12/24/2022 Active Atorvastatin Calcium 20 MG 1 tablet Oral ly Once a day for 90 days 01/20/2023 Active Vitamin D (Cholecalciferol) 50 MCG (1999 UT) 2.5 capsules Orally Once a day Active Osteo Bi-Flex One Per Day Active SOCIAL HISTORY Tobacco Use: Social History Observation Description Date Details (start date - stop date) Never Smoker NA - NA Sex Assigned At : Social History Observation Description Sex Assigned At Unknown Tobacco Use/Smoking Question Answer Notes Tobacco use: nonsmoker Section Notes: Lives in [place], [place] with brother and sister in law. VITAL SIGNS Blood pressure systolic 112 mm Hg 03/26/19 24 Blood pressure diastolic 82 mm Hg 024 Heart Rate 98 /min 03/26/2023 Temperature 97.7 degrees Fahrenheit 03/26/19 24 Oximetry 99 % 03/26/2023 Weight 213.0 lbs 03/26/2023 Weight-kg 96.62 kg 03/26/2023 Height 67 in 03/26/2023 Height-cm 170.18 cm 03/26/2023 BMI 33.36 kg/m2 03/26/2023 Encounters Encounter Location Date Provider Diagnosis [address] [place] [id number] 03/26/2023 NEYDA LINO COVID-19 U07.1 and Herpesviral gingivostomatitis and pharyngotonsillitis B00.2 ASSESSMENTS Encounter Date Diagnosis Assessment Notes Treatment Notes Treatment Clinical Notes Section Notes 03/26/2023 COVID-19 (ICD-10 - U07.1) Continue Mucinex Increase fluids will give Steroid taper Work note provided Def call if no relief or worsening s/s 03/26/2023 Herpesviral gingivostomatitis and pharyngotonsillitis (ICD-10 - B00.2) Recent illness caused outbreak Very good relief at onset/sensation Will refill antiviral 03/26/2023 Other Total time spent with patient 20 minutes which includes face to face visit, education and coordination of care. PLAN OF TREATMENT Medication Medication Name Sig Start Date Stop Date Notes Medrol 4 MG as directed Orally d aily for 6 days 03/26/2023 valACYclovir HCl 500 MG 1 tablet Orally twice a day for 90 days 06/24/2023 Treatment Notes Assessment Notes COVID-19 Continue Mucinex Increase fluids will give Steroid taper Work note provided Def call if no relief or worsening s/s Herpesviral gingivostomatiti s and pharyngotonsillitis Recent illness caused outbreak Very good relief at onset/sensation Will refill antiviral Other Total time spent wit h patient 20 minutes which includes face to face visit, education and coordination of care. Next Appt Details Follow Up: prn, Reason: and as scheduled Progress Notes * HI GONZALEZIODOB:1990 (32 yo M)Acc No.[id number]:03/26/2023 Progress Notes Patient:??AR GONZALEZ Provider:??NEYDA LINO NP :1990?Age:32 Y?Sex:Ewa ness Date:03/26/2023 Phone: Address:[address] [place] [address] Pcp:DRE FARRIS Subjective: * Chief Complaints: * ?F/U SICK, COUGH * HPI: ?Patient Care Team:? Providers/Specialists: No other providers at this time. ?Visit info:? Tested positive last Thursday for Covid. Has had residual cough and chest congestion. Mainly dry cough, throat dry. Breathing not the same , feels labored, not able to get as much air in. Notes some wheeze with coughing. Started Muccinex at onset of Covid and has continued along with Gris Tea. ?Will need RTW note - has been OOW since 03/20/23-03/27/2023 (would like to RTW on Thursday) ?-States Overall getting better but due to cough and breathing felt could not return to work; some SOB and occ wheezing ?-Now clear mucus from nose ?-Had fever first day only. * ROS:?all systems reviewed and are non-contributory unless specified in the HPI. * Medical History:?? * Surgical History:??[place] [facility] * Hospitalization/Major [...] 2 x/mo or special occasion. ?Lives in [place], [place] with brother and sister in law. * Medications:??TakingvalACYcl ovir HCl 500 MG Tablet 1 tablet Orally twice a day As neededVitamin D (Cholecalciferol) 50 MCG (1999) Capsule 2.5 capsules Orally Once a day takes 5000iu dailyOsteo Bi-Flex One Per Day Multi Complete - Capsule as directed Orally CoQ10 100 MG Capsule 1 cap Orally twice a day Atorvastatin Calcium 20 MG Tablet 1 tablet Orally Once a day Medication List reviewed and reconciled with the patientTaking valACYclovir HCl 500 MG Tablet 1 tablet Orally twice a day As neededTaking Vitamin D (Cholecalciferol) 50 MCG (1999) Capsule 2.5 capsules Orally Once a day takes 5000iu dailyTaking Osteo Bi-Flex One Per Day Taking Multi Complete - Capsule as directed Orally Taking CoQ10 100 MG Capsule 1 cap Orally twice a day Taking Atorvastatin Calcium 20 MG Tablet 1 tablet Orally Once a day Medication List reviewed and reconciled with the patient * Allergies:??Seasonal: Runny nose, itchy eyes - Allergy Objective: * Vitals:??BP:112/82mm Hg, HR: 98/min, Temp:97.7F, Oxygen sat %:99%, Wt:213.0lbs, Wt-k.62 kg, Ht: 67 in, Ht-cm: 170.18 cm, BMI:33.36Index, Body Surface Area: 2.13. * Examination: ?General Examination: ?GEN: NAD, speaking in full complete sentences, thoughts clear and appropriate; non-acutely ill appearing ?ENT: clear TMs bilat; no nasal drainage or edema; no sunus pressure; no pharygeal erythema or edema or drainage ?RESP: nonlabored breathing, lungs clear/equal all aranda ?CV: S1S2 regular ?NEURO: AO x 3 ?PSYCH: judgment/insight intact, NL mood/affect. Assessment: * Assessment: 1.??COVID-19 - U07.1 (Primar y)??2.??Herpesviral gingivostomatitis and pharyngotonsillitis - B00.2?? Plan: * Treatment: 2.??Herpesviral gingivostoma titis and pharyngotonsillitis?? Refill valACYclovir HCl Tablet, 500 MG, 1 tablet, Orally, twice a day As needed as directed at onset, 90 days, 60, Refills 0.? Notes: Recent illness caused outbreak Very good relief at onset/sensation Will refill antiviral? 3.??Others?? Notes: Total time spent with patient 20 minutes which includes face to face visit, education and coordination of care.? * Procedure Codes:?? * Preventive Medicine:?Last CPE: 2020 w/Dr. Meet Fernandez Colonoscopy: No Endoscopy: No COVID Vac: Yes Flu Vac: No. * Follow Up:??prn (Reason: and as scheduled) * Billing Information: * Visit Code:?? 41759 Office Visit, Est Pt., Level 3. * Procedure Codes:?? * Sign off status: Completed true * Provider:??NEYDA LINO NP Date:?? History and Physical Notes * HPI (History of Present Illness) Category Sub-Category Detail Notes Category Not es Patient Care Team Providers/ Specialists: No other providers at this time Visit info Tested positive last Thursday for Covid. Has had residual cough and chest congestion. Mainly dry cough, throat dry. Breathing not the same , feels labored, not able to get as much air in. Notes some wheeze with coughing. Started Muccinex at onset of Covid and has continued along with Gris Tea. Will need RTW note - has been OOW since 03/20/23-03/27/2023 (would like to RTW on Thursday) -States Overall getting better but due to cough and breathing felt could not return to work; some SOB and occ wheezing -Now clear mucus from nose -Had fever first day only Examination Category Sub-Category Detail Notes Category Not es General Examination GEN: NAD, speaking in full complete sentences, thoughts clear and appropriate; non-acutely ill appearing ENT: clear TMs bilat; no nasal drainage or edema; no sunus pressure; no pharygeal erythema or edema or drainage RESP: nonlabored breathing, lungs clear/equal all aranda CV: S1S2 regular NEURO: AO x 3 PSYCH: judgment/insight intact, NL mood/affect
--- OUTSIDE RECORDS SUMMARY | 2024-05-27 07:55 | XMS_ITS ---
Author Organization [facility] Address [address] [place], [place] [id number] Care Team Providers Care Public Address Announcer Name Role Phone DRE FARRIS Primary Care Provider [phone] NEYDA LINO Unavailable [phone] REASON FOR VISIT 6 month f/u Encounters Encounter Location Date Provider Diagnosis [facility] [address] [place], [place] [phone] 10/29/2023 NEYDA LINO PLAN OF TREATMENT No Information Progress Notes * HI GONZALEZCHARLESOB:1990 (33 yo M)Acc No.[id number]:10/29/2023 Progress Notes Patient:??AR GONZALEZ Provider:??NEYDA LINO NP :1990?Age:33 Y?Sex:Ma thi Date:10/29/2023 Phone: Address:[address] [place], [place] [phone] Pcp:DRE FARRIS Subjective: * Chief Complaints: * ?1. 6 month f/u. * Medical History:?? Objective: Assessment: Plan: * Treatment: * Billing Information: * Visit Code:?? * Procedure Codes:?? * Sign off status: Pending * Provider:??NEYDA LINO NP Date:??
[2024-05-27 13:04] LABS: Cholesterol 115 mg/dL (<200); Triglycerides 183 mg/dL (<150)
[2024-05-27 14:06] LABS: HDL Cholesterol 30 mg/dL (>40); LDL Cholesterol Calculated 49 mg/dL (<100)
== END 2024-05-27 07:52 | disposition home or self-care (01) ==
LOC: HO.WFDLDS 07:51
PROVIDERS: Visit Provider Nurse Practitioner Family
DX: E78.5 Hyperlipidemia, unspecified (principal)
CPT/HCPCS: 36415; 80061

== ENCOUNTER 2024-06-03 08:21 | Outpatient (AMB) | payer BC, SELFPAY ==
--- NOTE | 2024-06-03 08:23 | MHC.PC.OV ---
Vital Signs 06/03/24 08:27 Height 5 ft 6 in Weight 226 lb 6 oz BMI 36.5 BP 135/63 Blood Pressure Location Rt brachial Position Sitting Respiration 16 Pulse 89 Pulse Source Pulse Oximeter Temp 98.4 F Temp Source Oral Pulse Oximetry (%) 100 Oxygen Delivery Method Room Air Intake Visit Reasons: 3 mos HLD Intake Note: patient here for follow up on HLD Clerical Adjudicator Required: No Allergies No Known Allergies Allergy (Verified 06/03/24 08:37) Medication List - Last Reconciled 06/03/24 by Dannielle Lemons CNP atorvastatin 20 mg PO BEDTIME 30 days coenzyme Q10 (CoQ-10) 100 mg PO DAILY multivitamin (Daily Multi-Vitamin tablet) 1 tab PO DAILY valacyclovir (Valtrex) 500 mg PO BID Tobacco use date assessed: 06/03/24 Dental Screening Dental Screen Date: 06/03/24 Did you have a dental visit in the last 12 months?: Yes Did you have a dental problem in the last 6 months where you did not have access to dental care?: No Was dental information given to patient?: Patient has dentist HPI HPI Comments History of Present Illness Details 33-year-old male presents for hyperlipidemia follow-up. He admits to consuming significant amount of red meat and cheese. He has not been exercising. His thinks that he has sleep apnea because he snores. He denies acute symptoms. [facility] Family History (Updated 11/12/23 @ 08:43 by Edna Pollard [place]) Mother FH: mental illness Social History Housing: House Patient Tobacco Use Status: Never used Tobacco e-Cigarette/Vaping Use: Never Used Second Hand Smoke Exposure: No service: No Current occupational status: unemployed Current occupation: [employer] Current occupational exposures/hazards: No Cognitive needs: No Hearing needs: No Vision needs: No Questionnaire Thrive Questionnaire Date Thrive assessed: 02/29/24 I am a: Patient What is your living situation today?: I have a steady place to live Within the past 12 months, did the food you bought not last and you didn't have the money to get more?: Never true Within the past 12 months, did you worry whether your food would run out before you got money to buy more?: Never true Do you have trouble paying for medicines?: No Do you have trouble getting transportation to medical appointments?: No Do you have trouble paying your heating and electricity bill?: No Do you have trouble taking care of your child, family member or friend?: No Do you have trouble with day-to-day activities such as bathing, preparing meals, shopping, managing finances, etc.?: No Are you currently unemployed and looking for a job?: No Are you interested in more education?: No Please select the resources that you would like help with: None Currently or been in a relationship where the following occur: No concerns reported THRIVE Score: 0 BABAK-7 AMB Questionnaire BABAK-7 Date BABAK - 7 assessed: 02/29/24 Source: Developed by Drs. Fish Daly, Annamarie Lewis, Woody Grayson and colleagues, with an educational cj from [employer]. Review of Systems Const Details: Const Denies chills, Denies fatigue, Denies fever(s), Denies headache(s) and Denies weakness ENT Denies dizziness and Denies headache(s) Card Denies chest pain, Denies lightheadedness, Denies dyspnea and Denies other (Palpitations) Resp Denies cough, Denies dyspnea, Denies wheezing and Denies other ( shortness of breath) GI Denies abdominal pain, Denies melena, Denies hematochezia, Denies change in bowel habits, Denies dyspepsia and Denies nausea Denies hematuria and Denies dysuria Musc Denies abnormal gait, Denies myalgias, Denies arthralgias, Denies numbness and Denies tingling Skin/Breast Denies rash, Denies unusual bruising and Denies wounds Neuro Denies abnormal gait, Denies dizziness, Denies headache(s), Denies memory loss, Denies numbness, Denies Sensory deficit (Neuro), Denies tingling and Denies weakness Psych Denies anxiety, Denies depression, Denies memory loss Endo Denies cold intolerance, Denies fatigue, Denies heat intolerance, Denies polydipsia and Denies polyuria Aller/Immun Denies wheezing Physical exam (Primary Care) Vital Signs: Last Vital Signs Temp 98.4 F 06/03/24 08:27 Pulse 89 06/03/24 08:27 Resp 16 06/03/24 08:27 BP 135/63 06/03/24 08:27 Pulse Ox 100 06/03/24 08:27 Oxygen Delivery Method Room Air 06/03/24 08:27 BMI result Body Mass Index 36.5 Tobacco/Smoking Status: Tobacco use Status Tobacco use date assessed 06/03/24 06/03/24 08:31 Patient Tobacco Use Status Never used Tobacco 06/03/24 08:26 e-Cigarette/Vaping Use Never Used 06/03/24 08:26 Thrive Assessment: Date of Thrive Assessment Date Thrive assessed 02/29/24 06/03/24 08:26 Currently or been in a relationship where the following occur: No concerns reported Const Other: General: no acute distress and well developed Nutritional Appearance: well nourished Orientation/consciousness: patient oriented x3 HENMT Head: Yes normocephalic and Yes atraumatic Eyes General: appearance normal, both eyes and all related structures Pupils: Equal, round and reactive pupils present EOM: EOMs intact bilaterally Resp Effort & Inspection: normal respiratory effort Auscultation: clear to auscultation bilaterally Cardio Rate: regular rate Rhythm: regular rhythm Heart sounds: S1 normal heart sound present, S2 normal heart sound present, no gallops, no murmurs and no rubs GI Palpation (GI): No Abdominal aortic bruit present, Soft to palpation, nontender, No hepatosplenomegaly present and No Rebound tenderness present Auscultation: normal bowel sounds General: Yes no CVA tenderness Back/Spine/Pelvis Back: no CVA tenderness Cervical Spine: cervical ROM normal and No Cervical spine tenderness Thoracic/Lumbar Spine: thoraco-lumbar ROM normal, No pain with thoraco-lumbar ROM, No thoracic spinal tenderness and No lumbar spinal tenderness Extrem General: Yes normal to inspection, No edema and No calf tenderness Skin General: warm and dry. Normal skin color. Normal skin turgor Neuro General: patient oriented x3, gait normal and no focal neuro deficit Cranial nerves: Yes Equal, round and reactive pupils present Cognition (Neuro): normal cognition Gait exam (Neuro): Normal gait present Sensory Exam: No Sensory deficit (Neuro) Psych Appearance: grossly normal Affect: normal affect Attitude: cooperative Thought process: Normal thought process present Coding Level of Care Code Est Pt Level 3 (49111) Diagnoses Hyperlipidemia E78.5 Snoring R06.83 Assessment & Plan Assessment & Plan (1) Hyperlipidemia: Code(s): E78.5 - Hyperlipidemia, unspecified Category: Medical Plan: Recent triglycerides level is elevated, 183 from 215, HDL is low, 30 from 29. Total cholesterol and LDL levels are normal. Continue to take atorvastatin as prescribed. Advised to limit foods high in saturated fat and avoid foods high in trans fat. Routine exercise encouraged. Fast for 10-12 hours, may drink water, and perform lipid panel blood work 2-3 days before next visit. Follow-up for telehealth visit in 3 months. Return sooner with symptoms or concerns. Verbalized understanding and agreed with the plan. (2) Snoring: Code(s): R06.83 - Snoring Category: Medical Plan: Referred to [facility] sleep medicine for a sleep study. Follow-up with symptoms or concerns. Verbalized understanding and agreed with plan. Orders: Orders Lipid Panel 3 Months E78.5 - Hyperlipidemia, unspecified Referrals Sleep Medicine Referral R06.83 - Snoring Medications: Refilled atorvastatin 20 mg PO BEDTIME 30 days 30 tabs 3RF
--- OUTSIDE RECORDS SUMMARY | 2024-06-03 08:26 | XMS_ITS | Patient Health Record ---
Author Organization [facility] Address [address] [phone] Support Name Relationship Address Phone Whitaker, Wilder Guarantor Unknown [phone] Allergies Allergen (clinical drug ingredient) Drug/Non Drug Allergy documented on EMR Reaction Allergy Type Onset Date Status No Known Drug Allergy Unknown Drug Allergy Active No Known Food Allergy Unknown Drug Allergy Active Reason For Referral No Information Medications Medication SIG (Take, Route, Fr equency, Duration) Notes Start Date End Date Status [place] 3 Active Multi Vitamin - 1 tablet [...] Number of children in household: not answered Yazidism: not answered Level of education: not answered Family yearly income: not answer ed Tobacco use other than smoking: Question Answer Notes Are you an other tobacco user? 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) Active confirmed Plan Of Treatment No Information Insurance Providers Payer Name Payer Address Payer Phone Subscriber Number Group Number Insured Name Patient Relationship to Insured Coverage Start Date Coverage End Date [facility] [address] [place] [phone] [id number] Wilder Whitaker Self - patient is the insured Medical (General) History Medical History History ICD Code No Significant Medical history No known Environmental allergies Surgical History Surgery Date(Month/Year) No Significant surgery Hospitalization History Reason Date(Month/Year) No Significant hospilization
[2024-06-03 08:27] VITALS: BP 135/63; PULSE 89; RESP 16; TEMP 36.9; O2SAT 100; BMI 36.5
--- OUTSIDE RECORDS SUMMARY | 2024-06-03 08:27 | XMS_ITS | Patient Health Record ---
Author Organization [facility] Address [address] [place] [phone] Care Team Providers Care Oil Field Rig Builder Name Role Phone KALEIGHDRE Primary Care Provider NEYDA LINO Unavailable [phone] ALLERGIES Allergen (clinical drug ingredient) Drug/Non Drug Allergy documented on EMR Reaction Allergy Type Onset Date Status Seasonal (uncoded) Runny nose, itchy eyes Allergy Active REASON FOR REFERRAL No Information MEDICATIONS Medication SIG (Take, Route, Frequency, Duration) Notes Start Date End Date Status Vitamin D (Cholecalciferol) 50 MCG (1999) 2.5 capsules Orally Once a day Active Osteo Bi-Flex One Per Day Active Multi Complete - as directed Orally Active CoQ10 100 MG 1 cap Orally twice a day for 90 days 12/24/2022 Active Medrol 4 MG as directed Orally daily for 6 days 03/26/2023 Not-Taking Atorvastatin Calcium 20 MG TAKE 1 TABLET BY MOUTH EVERY DAY AT BEDTIME for 90 Active SOCIAL HISTORY Tobacco Use: Social History Observation Description Date Details (start date - stop date) Never Smoker NA - NA Sex Assigned At : Social History Observation Description Sex Assigned At Unknown Tobacco Use/Smoking Question Answer Notes Tobacco use: nonsmoker Section Notes: Lives in [place], [place] with brother and sister in law. Lives in [place], [place] with brother and sister in law. Lives in [place], [place] with brother and sister in law. Lives in [place] with brother and sister in law. Lives in [place], [place] with brother and sister in law. PROBLEMS Problem Type ICD Code Onset Dates Problem Status W/U Status Risk SNOMED Code Notes Problem Herpesviral gingivostomatitis and pharyngotonsillitis (B00.2) Active confirmed 64546635 Problem Mixed hyperlipidemia (E78.2) Active confirmed 015404683 Problem Gilbert syndrome (E80.4) Active confirmed 64383004 Problem Elevated C-reactive protein (CRP) (R79.82) Active confirmed 797999321714165 Problem Testicular pain, unspecified (N50.819) Active confirmed 84659490 Problem Obesity (BMI 30.0-34.9) (E66.9) Active confirmed 642397040066339 Problem Vitamin D deficiency (E55.9) Active confirmed 10661881 Problem Elevated liver enzymes (R74.8) Active confirmed 474656144 Problem Lateral epicondyliti s of right elbow (M77.11) Active confirmed 902117290401779 Problem CKD (chronic kidney disease) stage 1, GFR 90 ml/min or greater (N18.1) Active confirmed Chronic kidney disease stage 1 (613057843) Problem Insulin resistance syndrome (E88.810) Active confirmed Insulin resistance syndrome (112801732) Encounters Encounter Location Date Provider Diagnosis [address] [id number] 10/29/2023 NEYDA LINO PLAN OF TREATMENT Pending Test Test Name Order Date Ultrasound : Abdomen 10/23/2022 Future Test Test Name Order Date CARDIO IQ(R) HS CRP (47058) 10/23/2022 INSULIN (561) 10/23/2022 Insurance Providers Payer Name Payer Address Payer Phone Subscriber Number Group Number Insured Name Patient Relationship to Insured Coverage Start Date Coverage End Date [facility] [address] [place] [address] [id number] AR GONZALEZ Self - patient is the insured MEDICAL (GENERAL) HISTORY Medical History History ICD Code Gilbert's Cold sores Surgical History Surgery Date(Month/Year) [place] [facility]
--- OUTSIDE RECORDS SUMMARY | 2024-06-03 08:27 | XMS_ITS ---
Author Organization [facility] [employer] Address [address] [place] [phone] Care Team Providers Care Wigs Salesperson Name Role Phone DRE FARRIS Primary Care Provider NEYDA LINO Unavailable [phone] ALLERGIES Allergen (clinical drug ingredient) Drug/Non Drug [...] Tobacco use: nonsmoker Section Notes: Lives in [place] with brother and sister in law. PROBLEMS Problem Type ICD Code Onset Dates Problem Status W/U Status Risk SNOMED Code Notes Problem CKD (chronic kidney disease) stage 1, GFR 90 ml/min or greater (N18.1) Active confirmed Chronic kidn ey disease stage 1 (797696891) Problem Insulin resistance syndrome (E88.810) Active confirmed Insulin resistance syndrome (252508481) VITAL SIGNS Height 67 in 04/28/2023 Height-cm 170.18 cm 04/28/2023 Encounters Encounter Location Date Provider Diagnosis [address] [place], [place] [phone] 04/28/2023 NEYDA LINO Elevated liver enzym es [...] Notes * HI GONZALEZIODOB:1990 (32 yo M)Acc No.[id number]:04/28/2023 Progress Note Patient:??AR GONZALEZ Provider:??NEYDA LINO NP :1990?Age:32 Y?Sex:Ma le Date:04/28/2023 Phone: Address:[address] [place] [address] Pcp:DRE FARRIS Subjective: * Chief Complaints: * [...] the HPI. * Medical History:?? * Surgical History:??[place] [facility] * Hospitalization/Major [...] 2 x/mo or special occasion. ?Lives in [place], [place] with brother and sister in law. [...] wellness/stools) * Billing Information: * Visit Code:?? 91481 Office Visit, Est Pt., Level 3. * [...]
--- OUTSIDE RECORDS SUMMARY | 2024-06-03 08:27 | XMS_ITS ---
Author Organization [facility] Address [address] [place], [place] [id number] Care Team Providers Care Plastics Patternmaker Name Role Phone DRE FARRIS Primary Care Provider [phone] NEYDA LINO Unavailable [phone] REASON FOR VISIT 6 month f/u Encounters Encounter Location Date Provider Diagnosis [facility] [address] [place], [place] [id number] 10/29/2023 NEYDA LINO PLAN OF TREATMENT No Information Progress Notes * HI GONZALEZCHARLESOB:1990 (33 yo M)Acc No.[id number]:10/29/2023 Progress Notes Patient:??AR GONZALEZ Provider:??NEYDA LINO NP :1990?Age:33 Y?Sex:Ma thi Date:10/29/2023 Phone: Address:[address] [place], [place] [phone] Pcp:DRE FARRIS Subjective: * Chief Complaints: * ?1. 6 month f/u. * Medical History:?? Objective: Assessment: Plan: * Treatment: * Billing Information: * Visit Code:?? * Procedure Codes:?? * Sign off status: Pending * Provider:??NEYDA LINO NP Date:??
--- OUTSIDE RECORDS SUMMARY | 2024-06-03 08:27 | XMS_ITS ---
Author Organization [facility] Address [address] [place] [id number] Care Team Providers Care House Sitter Name Role Phone KRISTI FARRISFER Primary Care Provider [phone] NEYDA LINO Unavailable [phone] ALLERGIES Allergen (clinical drug ingredient) Drug/Non Drug [...] Tobacco use: nonsmoker Section Notes: Lives in [place], [place] with brother and sister in law. VITAL SIGNS Temperature 97.7 degrees Fahrenheit 03/26/19 24 Blood pressure systolic 112 mm Hg 03/26/19 24 Blood pressure diastolic 82 mm Hg 024 Heart Rate 98 /min 03/26/2023 Height 67 in 03/26/2023 Weight 213.0 lbs 03/26/2023 BMI 33.36 kg/m2 03/26/2023 Oximetry 99 % 03/26/2023 Height-cm 170.18 cm 03/26/2023 Weight-kg 96.62 kg 03/26/2023 Encounters Encounter Location Date Provider Diagnosis [address] [place] [id number] 03/26/2023 NEYDA LINO COVID-19 U07.1 and Herpesviral [...] Notes * HI GONZALEZIODOB:1990 (32 yo M)Acc No.[id number]:03/26/2023 Progress Notes Patient:??AR GONZALEZ Provider:??NEYDA LINO NP :1990?Age:32 Y?Sex:Ewa ness Date:03/26/2023 Phone: Address:[address] [place] [address] Pcp:DRE FARRIS Subjective: * Chief Complaints: * [...] the HPI. * Medical History:?? * Surgical History:??[facility] * Hospitalization/Major [...] 2 x/mo or special occasion. ?Lives in [place] with brother and sister in law. [...] scheduled) * Billing Information: * Visit Code:?? 05534 Office Visit, Est Pt., Level 3. * [...]
== END 2024-06-03 08:50 | disposition home or self-care (01) ==
LOC: HO.HMCFM 08:22
PROVIDERS: PCP Nurse Practitioner Family; Visit Provider Nurse Practitioner Family
DX: E78.5 Hyperlipidemia, unspecified (principal); R06.83 Snoring

== ENCOUNTER → 2024-06-03 08:21 | Outpatient (BNVA) | payer BC, SELFPAY | PROVIDERS: PCP Nurse Practitioner Family; Visit Provider Nurse Practitioner Family ==

== ENCOUNTER 2024-08-05 14:40 | Outpatient (AMB) | payer BC, SELFPAY ==
--- OUTSIDE RECORDS SUMMARY | 2024-08-05 14:43 | XMS_ITS | Patient Health Record ---
Author Organization [facility] Address [address] [phone] Support Name Relationship Address Phone Whitaker, Wilder Guarantor Unknown [phone] Allergies Allergen (clinical drug ingredient) Drug/Non Drug Allergy documented on EMR Reaction Allergy Type Onset Date Status No Known Drug Allergy Unknown Drug Allergy Active No Known Food Allergy Unknown Drug Allergy Active Reason For Referral No Information Medications Medication SIG (Take, Route, Fr equency, Duration) Notes Start Date End Date Status [place] 3 Active Multi Vitamin - 1 tablet [...] Number of children in household: not answered Sikhism: not answered Level of education: not answered Family yearly income: not answer ed Tobacco use other than smoking: Question Answer Notes Are you an other tobacco user? 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 [address] [place] [address] [id number] Wilder Whitaker Self - patient is the insured Medical (General) History Medical History History ICD Code No Significant Medical history No known Environmental allergies Surgical History Surgery Date(Month/Year) No Significant surgery Hospitalization History Reason Date(Month/Year) No Significant hospilization
--- NOTE | 2024-08-05 14:55 | MHC.OFFVIS ---
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 His thinks that he has sleep apnea because he snores and stops breathing in his sleep. He denies acute symptoms. Allergies No Known Allergies Allergy (Verified 08/05/24 14:58) HPI Comments Details: 33 year old male here for a sleep evaluation today, pcp. EEG c/w no seizure activity in [facility]. 2019, but c/o l. hand tremors, with and without action and spontaneously. Gilbert's syndrome, Bilirubin is high, and no clinical symptoms typically stress induced, he manages with diet and exercise. Pulse is high today at 106. HST pending Labs pending His is concerned about him having difficulty falling asleep and staying asleep. He goes to bed at 11pm wakes up at 3am for the bathroom, then at 6:30am for work. He snores loudly, and gasps for air with multiple arousals at night. He had sleep paralysis 1-2 x and could not move in the middle of the night after waking up after a fearful dream, denies night terrors, and parasomnias. He denies bruxism, and morning headaches. FH + for stroke father, at 55, living and well. His mom has depression. Maternal grandma Parkinsons. He has tremors and twitching in his left hand, notices them after physical activities and they are managed with vit d3. He denies RLS symptoms, pain, numbness, tingling burning sensation in his feet. He does not smoke, but drinks socially. PFSH Family History Mother FH: mental illness Social History Housing: House Patient Tobacco Use Status: Never used Tobacco e-Cigarette/Vaping Use: Never Used Second Hand Smoke Exposure: No service: No Current occupational status: unemployed Current occupation: [employer] Current occupational exposures/hazards: No Cognitive needs: No Hearing needs: No Vision needs: No Physical Exam Vital Signs: Last Vital Signs Pulse 106 H 08/05/24 14:56 Pulse Ox 98 08/05/24 14:56 Oxygen Delivery Method Room Air 08/05/24 14:56 BMI result Body Mass Index 36.8 Const General: cooperative, healthy appearing and no acute distress Orientation/consciousness: patient oriented x3 HEENT Face and sinus: Yes face symmetric Teeth and gingiva: other (Mallampti score is 4) Eyes Pupils: Equal, round and reactive pupils present Neck Neck: Yes full ROM Resp Effort & Inspection: normal respiratory effort and able to speak in complete sentences Neuro Other: h/o hand tremors L. hand with action and at rest. General: patient oriented x3 and moves all extremities Cranial nerves: Yes Equal, round and reactive pupils present, Yes Normal accommodation reflex present, Yes Bilaterally intact EOM present, Yes Nystagmus not present, Yes Normal facial strength present, Yes Midline tongue present, Yes Ability to bilaterally rotate head present and Yes Ability to bilaterally elevate shoulders present Cognition (Neuro): normal cognition Gait exam (Neuro): Normal gait present Motor exam (neuro): 5/5 motor strength present throughout and Normal motor muscle tone present throughout Deep tendon reflexes (DTR's): Right triceps reflex intensity grade: 2+, Left triceps reflex intensity grade: 2+, Rt Biceps (C5, C6): 2+, Left biceps reflex intensity grade: 2+, Right brachioradialis reflex intensity grade: 2+, Left brachioradialis reflex intensity grade: 2+, Right patellar reflex intensity grade: 2+, Left patellar reflex intensity grade: 2+, Right ankle reflex intensity grade: 2+ and Left ankle reflex intensity grade: 2+ Coordination: [id number] test normal Psych Appearance: grossly normal Thought process: Normal thought process present Thought content: Normal thought content present Assessment & Plan Assessment & Plan (1) Excessive daytime sleepiness: Code(s): G47.19 - Other hypersomnia Category: Medical (2) Snoring: Code(s): R06.83 - Snoring Category: Medical Plan HST to r/o maya Labs to r/o excessive daytime fatigue tremors r. hand at rest and with action Orders: Orders RT home sleep study 08/05/24 G47.19 - Other hypersomnia Complete Blood Count no Diff 08/05/24 G47.19 - Other hypersomnia Comprehensive Met. Panel 08/05/24 G47.19 - Other hypersomnia Ferritin 08/05/24 G47.19 - Other hypersomnia Homocysteine 08/05/24 G47.19 - Other hypersomnia, G47.9 - Sleep disorder, unspecified, R53.83 - Other fatigue Lipid Panel with Reflex 08/05/24 G47.19 - Other hypersomnia Vitamin B12 and Folate 08/05/24 G47.19 - Other hypersomnia TSH reflex Free T4 08/05/24 G47.19 - Other hypersomnia Hemoglobin A1c 08/05/24 G47.19 - Other hypersomnia Methylmalonic Acid 08/05/24 G47.19 - Other hypersomnia, G47.9 - Sleep disorder, unspecified, R53.83 - Other fatigue Vitamin D 25-OH Total 08/05/24 G47.19 - Other hypersomnia Patient Instructions: Sleep Hygiene provided: set a scheduled bedtime and wake time to help regulate the circadian rhythm and balance the release of pituitary hormones. Sleep in a dark room, temperatures below 68 degrees, and no devices n bed. Limit caffeinated products 6 hours prior to bed, and limit fluids 2-4 hours prior to bed. Gentle night yoga, diffusing essential oils, and playing soft music can be relaxing. Coding Level of Care Code New Pt Level 4 (57894) Diagnoses Excessive daytime sleepiness G47.19 Snoring R06.83 Time Spent (min) 30 Comment Evaluation Sleep Questionnaire Difficulty falling asleep: Yes Difficulty staying asleep?: Yes Number of arousals: 1-2 Snoring: Yes Witnessed apneas: Yes Gasping arousals: Yes Nocturia: No GERD: No Vivid dreams: Yes Acting out dreams: No Abnormal behavior in sleep: No Abnormal movements in sleep: Yes Morning headaches: No Excessive daytime sleepiness: Yes Daytime naps: Yes Restless legs: No Hallucinations: No Sleep paralysis: Yes Drop attacks: Yes Sleep Study: No CPAP: No
[2024-08-05 14:56] VITALS: PULSE 106; O2SAT 98; BMI 36.8
== END 2024-08-05 15:52 | disposition home or self-care (01) ==
LOC: HO.HSMS 14:41
PROVIDERS: PCP Nurse Practitioner Family; Visit Provider Physician Assistant Medical
DX: G47.19 Other hypersomnia (principal); R06.83 Snoring
CPT/HCPCS: 99204

== ENCOUNTER → 2024-08-05 14:40 | Outpatient (BNVA) | payer BC, SELFPAY | PROVIDERS: PCP Nurse Practitioner Family; Visit Provider Physician Assistant Medical ==

== ENCOUNTER 2024-08-19 07:38 | Outpatient (REF) | payer BC, SELFPAY ==
[2024-08-19 11:26] LABS: Hematocrit 43.4 % (42.0-52.0); Hemoglobin 14.6 g/dl (14.0-18.0); Mean Corpuscular HGB Conc 33.6 g/dl (31.0-36.0); Mean Corpuscular Hemoglobin 29.9 pg (27.0-33.0); Mean Corpuscular Volume 88.9 fL (80.0-98.0); Mean Platelet Volume 11.9 fL (9.4-12.4); Platelet Count 227 X10*3/uL (160-400); Red Blood Count 4.88 X10*6/uL (4.60-5.80); Red Cell Distribution Width 11.6 % (11.0-16.0); White Blood Count 6.1 X10*3/uL (4.8-10.8)
[2024-08-19 11:43] LABS: Estimated Average Glucose 91 mg/dL; Hemoglobin A1c % 4.8 % (<6.0)
[2024-08-19 11:45] LABS: Alanine Aminotransferase 82 U/L (0-40); Albumin Level 4.8 g/dL (3.5-5.0); Alkaline Phosphatase 83 U/L (39-117); Anion Gap 13 (12-20); Aspartate Amino Transferase 50 U/L (5-37); Bilirubin Total 2.3 mg/dL (0.0-1.0); Blood Urea Nitrogen 13 mg/dL (9-16); Calcium 9.4 mg/dL (8.4-10.2); Carbon Dioxide 25 mmol/L (22-29); Chloride 105 mmol/L (96-108); Cholesterol 105 mg/dL (<200); Estimated Glomerular Filt Rate > 60; Glucose Random 95 mg/dL (60-115); HDL Cholesterol 26 mg/dL (>40); LDL Cholesterol Calculated 43 mg/dL (<100); Potassium 4.3 mmol/L (3.3-5.1); Sodium 139 mmol/L (135-145); Total Protein 6.6 g/dL (6.5-8.0); Triglycerides 181 mg/dL (<150)
[2024-08-19 12:15] LABS: Ferritin 399 ng/mL (20-250); TSH reflex Free T4 1.19 uIU/mL (0.32-4.0); Vitamin D 25-OH Total 88.5 ng/mL (>30)
[2024-08-19 12:17] LABS: Folate 14.1 ng/mL (> or = 4.0); Vitamin B12 540 pg/mL (200-900)
[2024-08-19 13:14] LABS: Reflex LDLD? No
[2024-08-22 14:28] LABS: Methylmalonic Acid 96 nmol/L (55-335)
== END 2024-08-19 07:39 | disposition home or self-care (01) ==
LOC: HO.WFDLDS 07:38
PROVIDERS: Referring Provider Physician Assistant Medical; Visit Provider Nurse Practitioner Family
DX: G47.19 Other hypersomnia (principal); E78.5 Hyperlipidemia, unspecified; R53.83 Other fatigue; G47.9 Sleep disorder, unspecified
CPT/HCPCS: 36415; 80053; 80061; 82306; 82607; 82728; 82746; 83036; 83921; 84443; 85027

== ENCOUNTER 2024-09-05 12:45 | Outpatient (AMB) | payer BC, SELFPAY ==
--- NOTE | 2024-09-05 12:42 | MHC.PC.OV ---
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 He admits to taking atorvastatin as prescribed without adverse reactions. He notes that he has been making healthy dietary choices. He recently indulged in more than usual fast food consumption. He is active but has not been exercising. He offers no complaints and denies acute symptoms at this time. PFSH Family History Mother FH: mental illness Social History Housing: House Patient Tobacco Use Status: Never used Tobacco e-Cigarette/Vaping Use: Never Used Second Hand Smoke Exposure: No service: No Current occupational status: unemployed Current occupation: [employer] Current occupational exposures/hazards: No Cognitive needs: No Hearing needs: No Vision needs: No Questionnaire Thrive Questionnaire Date Thrive assessed: 02/29/24 BABAK-7 AMB Questionnaire BABAK-7 Date BABAK - 7 assessed: 02/29/24 Source: Developed by Drs. Fish Daly, Annamarie Lewis, Woody Grayson and colleagues, with an educational cj from [employer]. Review of Systems Const Details: Denies chills, Denies fatigue, Denies fever(s), Denies headache(s) and Denies weakness Cardiac Denies chest pain, Denies claudication, Denies leg edema, Denies lightheadedness, Denies palpitations, Denies dyspnea, Denies dyspnea on exertion, Denies orthopnea and Denies other (Loss of consciousness) Resp Denies cough, Denies excessive phlegm production, Denies dyspnea, Denies dyspnea on exertion, Denies snoring and Denies wheezing Physical exam (Primary Care) Tobacco/Smoking Status: Tobacco use Status Tobacco use date assessed 09/05/24 09/05/24 12:44 Patient Tobacco Use Status Never used Tobacco 09/05/24 12:44 e-Cigarette/Vaping Use Never Used 09/05/24 12:44 Thrive Assessment: Date of Thrive Assessment Date Thrive assessed 02/29/24 09/05/24 12:44 Const Other: Patient is alert and oriented x3 Telehealth Telehealth Telehealth Platform: Telephone Location of provider rendering services: practice address Location of patient: address on file Patient Identification confirmed using: Name, : Yes Telehealth method: voice only Patient verbally consented to treatment: Yes Patient verbally consented to billing insurance company: Yes Patient informed of any privacy concerns related to visit: Yes Coding Level of Care Code Tele Est Pt Level 3 (78450) Diagnoses Hyperlipidemia E78.5 Time Spent (min) 15 Assessment & Plan Assessment & Plan (1) Hyperlipidemia: Code(s): E78.5 - Hyperlipidemia, unspecified Category: Medical Plan: Recent triglyceride level is elevated, 181, previous level was 183, LDL level is 26 from 30. Continue current treatment regimen. Advised to limit foods high in saturated fat and avoid foods high in trans fat. Routine exercise encouraged. Fast for 10-12 hours, may drink water, perform lipid panel blood work 2-3 days before next visit. Follow-up for a telehealth visit in 2 months. Return sooner with symptoms or concerns. Verbalized understanding and agreed with the treatment plan. Orders: Orders Lipid Panel 2 Months E78.5 - Hyperlipidemia, unspecified
--- OUTSIDE RECORDS SUMMARY | 2024-09-05 13:39 | XMS_ITS | Patient Health Record ---
Author Organization [facility] Address [address] [phone] Support Name Relationship Address Phone Whitaker Wilder Guarantor Unknown [phone] Allergies Allergen (clinical drug ingredient) Drug/Non Drug Allergy documented on EMR Reaction Allergy Type Onset Date Status No Known Drug Allergy Unknown Drug Allergy Active No Known Food Allergy Unknown Drug Allergy Active Reason For Referral No Information Medications Medication SIG (Take, Route, Fr equency, Duration) Notes Start Date End Date Status [place] 3 Active Multi Vitamin - 1 tablet Orally Once a day Active Ubrelvy 50 MG 1 tablet may take se cond dose at least 2 hours after first dose as needed Orally Once a day; Duration: 30 day(s) 10/16/2020 Active Ubrelvy 50 MG 1 tablet may take se cond dose at least 2 hours after first dose as needed Orally Once a day; Duration: 30 day(s) 07/02/2020 Active Ubrelvy 50 MG 1 tablet may take se cond dose at least 2 hours after first dose as needed Orally Once a day; Duration: 30 day(s) 08/21/2020 Active Social History Household Question Answer Notes Marital status: not answered Number of adults in household: n ot answered Number of children in household: not answered Baptist: not answered Level of education: not answered Family yearly income: not answer ed Tobacco use other than smoking: Question Answer Notes Are you an other tobacco user? 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) Active confirmed Problem Obstruction of precerebral artery (42769613) 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) Active confirmed Plan Of Treatment No Information Insurance Providers Payer Name Payer Address Payer Phone Subscriber Number Group Number Insured Name Patient Relationship to Insured Coverage Start Date Coverage End Date [facility] [address] [place] [phone] [id number] Wilder Whitaker Self - patient is the insured Medical (General) History Medical History History ICD Code No Significant Medical history No known Environmental allergies Surgical History Surgery Date(Month/Year) No Significant surgery Hospitalization History Reason Date(Month/Year) No Significant hospilization
== END 2024-09-05 16:08 | disposition home or self-care (01) ==
LOC: HO.HMCFM 12:45
PROVIDERS: PCP Nurse Practitioner Family; Visit Provider Nurse Practitioner Family
DX: E78.5 Hyperlipidemia, unspecified (principal)

== ENCOUNTER → 2024-09-05 12:45 | Outpatient (BNVA) | payer BC, SELFPAY | PROVIDERS: PCP Nurse Practitioner Family; Visit Provider Nurse Practitioner Family | DX: E78.5 Hyperlipidemia, unspecified (principal) | CPT/HCPCS: 98966 ==

== ENCOUNTER → 2024-10-18 15:30 | Outpatient (REF) | payer BC, SELFPAY ==
--- OUTSIDE RECORDS SUMMARY | 2024-10-18 16:26 | XMS_ITS | Patient Health Record ---
Author Organization [facility] Address [address] [phone] Support Name Relationship Address Phone Whitaker Wilder Guarantor Unknown [phone] Allergies Allergen (clinical drug ingredient) Drug/Non Drug Allergy documented on EMR Reaction Allergy Type Onset Date Status No Known Drug Allergy Unknown Drug Allergy Active No Known Food Allergy Unknown Drug Allergy Active Reason For Referral No Information Medications Medication SIG (Take, Route, Fr equency, Duration) Notes Start Date End Date Status [place] 3 Active Multi Vitamin - 1 tablet [...] Number of children in household: not answered Restorationism: not answered Level of education: not answered Family yearly income: not answer ed Tobacco use other than smoking: Question Answer Notes Are you an other tobacco user? 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) Active confirmed Plan Of Treatment No Information Insurance Providers Payer Name Payer Address Payer Phone Subscriber Number Group Number Insured Name Patient Relationship to Insured Coverage Start Date Coverage End Date [facility] [address] [place] [phone] [id number] Wilder Whitaker Self - patient is the insured Medical (General) History Medical History History ICD Code No Significant Medical history No known Environmental allergies Surgical History Surgery Date(Month/Year) No Significant surgery Hospitalization History Reason Date(Month/Year) No Significant hospilization
== END ==
LOC: HO.SL 15:30
PROVIDERS: PCP Nurse Practitioner Family; Visit Provider Physician Assistant Medical
DX: G47.33 Obstructive sleep apnea (adult) (pediatric) (principal); G47.19 Other hypersomnia
CPT/HCPCS: 95806

== ENCOUNTER → 2024-10-18 21:00 | Outpatient (BNV) | payer BC, SELFPAY | PROVIDERS: PCP Nurse Practitioner Family; Visit Provider Psychiatry & Neurology Neurology | DX: G47.33 Obstructive sleep apnea (adult) (pediatric) (principal) | CPT/HCPCS: 95806 ==

== ENCOUNTER 2024-11-05 08:00 | Outpatient (REF) | payer BC, SELFPAY ==
--- OUTSIDE RECORDS SUMMARY | 2024-11-05 08:03 | XMS_ITS | Patient Health Record ---
Author Organization [facility] Address [address] [phone] Support Name Relationship Address Phone Whitaker, Wilder Guarantor Unknown [phone] Allergies Allergen (clinical drug ingredient) Drug/Non Drug Allergy documented on EMR Reaction Allergy Type Onset Date Status No Known Drug Allergy Unknown Drug Allergy Active No Known Food Allergy Unknown Drug Allergy Active Reason For Referral No Information Medications Medication SIG (Take, Route, Fr equency, Duration) Notes Start Date End Date Status [place] 3 Active Multi Vitamin - 1 tablet [...] Number of children in household: not answered Latter Day: not answered Level of education: not answered Family yearly income: not answer ed Tobacco use other than smoking: Question Answer Notes Are you an other tobacco user? 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) Active confirmed Plan Of Treatment No Information Insurance Providers Payer Name Payer Address Payer Phone Subscriber Number Group Number Insured Name Patient Relationship to Insured Coverage Start Date Coverage End Date [facility] [address] [place] [id number] Wilder Whitaker Self - patient is the insured Medical (General) History Medical History History ICD Code No Significant Medical history No known Environmental allergies Surgical History Surgery Date(Month/Year) No Significant surgery Hospitalization History Reason Date(Month/Year) No Significant hospilization
== END 2024-11-05 08:01 | disposition home or self-care (01) ==
LOC: HO.LAB 08:00
PROVIDERS: PCP Nurse Practitioner Family; Visit Provider Physician Assistant Medical
DX: R53.83 Other fatigue (principal); G47.9 Sleep disorder, unspecified; G47.19 Other hypersomnia
CPT/HCPCS: 36415; 83090

== ENCOUNTER 2024-11-11 13:51 | Outpatient (AMB) | payer BC, SELFPAY ==
--- NOTE | 2024-11-11 13:53 | MHC.OFFVIS ---
Vital Signs 11/11/24 13:54 Height 5 ft 6 in Weight 227 lb BMI 36.6 BP 136/94 H Blood Pressure Location Rt brachial Position Sitting Pulse 80 Pulse Source Pulse Oximeter Pulse Oximetry (%) 98 Oxygen Delivery Method Room Air Intake Visit Reasons: 3m follow up Intake Note: Patient presents follow up TONY. Labs/HST in chart(AHI-55, AIMEE-71%. APAP 5-20cm. Titration recommended) International Sourcing Manager Required: No Allergies No Known Allergies Allergy (Verified 11/11/24 13:54) HPI Comments Details: 34 year old male here for a f/u of sleep apnea. PMH EEG c/w no seizure activity, study was completed with his former neurologist in [place]. He has Gilbert's syndrome, Bilirubin is elevated, though no clinical symptoms. Typically stress induced, he manages with hydration, diet and exercise along with decreasing stress levels. BP is slightly elevated today 136/94, he has whitecoat syndrome. 09/2024 HST c/w AHI 49.7 and oxygen desaturation to 71%, he has severe tony, 16% TIB snoring. Start on APAP 5-20cm, and send him for overnight titration study. He goes to sleep as soon as he hits the bed due to fatigue. He goes to bed at 10:30 and wakes up at 6am. He snores loudly, and gasps for air with multiple arousals at night. He had sleep paralysis 1-2 x and could not move in the middle of the night after waking up due to night terrors. He denies parasomnias He denies bruxism, clenching of jaw, TMJ, and morning headaches. He denies RLS symptoms, and paresthesias. He does not smoke nicotine, or MJ, denies edibles. Denies alcohol use. FH+ for stroke father, at 55, living and well. His mom has depression. Grandmother - paternal Parkinson. [facility] Family History Mother FH: mental illness Social History Housing: House Patient Tobacco Use Status: Never used Tobacco e-Cigarette/Vaping Use: Never Used Second Hand Smoke Exposure: No service: No Current occupational status: unemployed Current occupation: [employer] Current occupational exposures/hazards: No Cognitive needs: No Hearing needs: No Vision needs: No Physical Exam Vital Signs: Last Vital Signs Pulse 80 11/11/24 13:54 BP 136/94 H 11/11/24 13:54 Pulse Ox 98 11/11/24 13:54 Oxygen Delivery Method Room Air 11/11/24 13:54 BMI result Body Mass Index 36.6 Const General: cooperative, healthy appearing and no acute distress Orientation/consciousness: patient oriented x3 HEENT Face and sinus: Yes face symmetric Teeth and gingiva: other ([place]i score is 4) Eyes Pupils: Equal, round and reactive pupils present Neck Neck: Yes full ROM Resp Effort & Inspection: normal respiratory effort and able to speak in complete sentences Neuro Other: h/o hand tremors L. hand with action and at rest. General: patient oriented x3 and moves all extremities Cranial nerves: Yes Equal, round and reactive pupils present, Yes Normal accommodation reflex present, Yes Bilaterally intact EOM present, Yes Nystagmus not present, Yes Normal facial strength present, Yes Midline tongue present, Yes Ability to bilaterally rotate head present and Yes Ability to bilaterally elevate shoulders present Cognition (Neuro): normal cognition Gait exam (Neuro): Normal gait present Motor exam (neuro): 5/5 motor strength present throughout and Normal motor muscle tone present throughout Psych Appearance: grossly normal Thought process: Normal thought process present Thought content: Normal thought content present Results Reviewed Results Reviewed: 09/2024 HST c/w AHI 49.7 and oxygen desaturation to 71%, he has sever tony, 16% TIB snoring. Start on APAP 5-20cm, and send him for overnight titration study. Labs reviewed with pt. Assessment & Plan Assessment & Plan (1) Excessive daytime sleepiness: Code(s): G47.19 - Other hypersomnia Category: Medical (2) Snoring: Code(s): R06.83 - Snoring Category: Medical (3) Nocturnal hypoxemia: Comment: overynight pulse oximetry Code(s): G47.34 - Idiopathic sleep related nonobstructive alveolar hypoventilation Category: Medical Plan 09/2024 HST c/w AHI 49.7 and oxygen desaturation to 71%, he has sever tony, 16% TIB snoring. Start on APAP 5-20cm and monitor for compliance. Nocturnal hypoxemia overnight titration study r/o hypoxemia. Labs reviwed with pt. AST/ALT/ Bili elevated, Ferritin is elevated. Normal B12/ Homocystien and MMA. F/U in 3 months Patient Instructions: Sleep Hygiene provided: set a scheduled bedtime and wake time to help regulate the circadian rhythm and balance the release of pituitary hormones. Sleep in a dark room, temperatures below 68 degrees, and no devices n bed. Limit caffeinated products 6 hours prior to bed, and limit fluids 2-4 hours prior to bed. Gentle night yoga, diffusing essential oils, and playing soft music can be relaxing. Coding Level of Care Code Est Pt Level 4 (87168) Diagnoses Excessive daytime sleepiness G47.19 Snoring R06.83 Nocturnal hypoxemia G47.34
[2024-11-11 13:54] VITALS: BP 136/94; PULSE 80; O2SAT 98; BMI 36.6
== END 2024-11-11 14:34 | disposition home or self-care (01) ==
LOC: HO.HSMS 13:52
PROVIDERS: PCP Nurse Practitioner Family; Visit Provider Physician Assistant Medical
DX: G47.19 Other hypersomnia (principal); R06.83 Snoring; G47.34 Idiopathic sleep related nonobstructive alveolar hypoventilation
CPT/HCPCS: 99214

== ENCOUNTER 2024-11-23 07:20 | Outpatient (REF) | payer BC, SELFPAY ==
--- OUTSIDE RECORDS SUMMARY | 2024-11-23 07:23 | XMS_ITS | Patient Health Record ---
Author Organization [facility] Address [address] [phone] Support Name Relationship Address Phone Whitaker, Wilder Guarantor Unknown [phone] Allergies Allergen (clinical drug ingredient) Drug/Non Drug Allergy documented on EMR Reaction Allergy Type Onset Date Status No Known Drug Allergy Unknown Drug Allergy Active No Known Food Allergy Unknown Drug Allergy Active Reason For Referral No Information Medications Medication SIG (Take, Route, Fr equency, Duration) Notes Start Date End Date Status [place] 3 Active Multi Vitamin - 1 tablet [...] Number of children in household: not answered Catholic: not answered Level of education: not answered Family yearly income: not answer ed Tobacco use other than smoking: Question Answer Notes Are you an other tobacco user? 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
[2024-11-23 08:20] LABS: Cholesterol 101 mg/dL (<200); HDL Cholesterol 25 mg/dL (>40); Triglycerides 188 mg/dL (<150)
== END 2024-11-23 07:21 | disposition home or self-care (01) ==
LOC: HO.LAB 07:20
PROVIDERS: PCP Nurse Practitioner Family; Visit Provider Nurse Practitioner Family
DX: E78.5 Hyperlipidemia, unspecified (principal)
CPT/HCPCS: 36415; 80061

== ENCOUNTER 2024-12-02 11:55 | Outpatient (AMB) | payer BC, SELFPAY ==
--- NOTE | 2024-12-02 11:42 | A.OFFPC_ITS ---
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 Allergies No Known Allergies Allergy (Verified 12/02/24 12:50) Medication List - Last Reconciled 12/02/24 by Dannielle Lemons CNP atorvastatin 20 mg PO BEDTIME 30 days coenzyme Q10 (CoQ-10) 100 mg PO DAILY multivitamin (Daily Multi-Vitamin tablet) 1 tab PO DAILY valacyclovir (Valtrex) 500 mg PO BID Tobacco use date assessed: 12/02/24 Dental Screening Dental Screen Date: 12/02/24 Did you have a dental visit in the last 12 months?: Yes Did you have a dental problem in the last 6 months where you did not have access to dental care?: No Was dental information given to patient?: Patient has dentist HPI HPI Comments History of Present Illness Details 34-year-old male presents for telehealth visit for a hyperlipidemia. He admits to taking atorvastatin as prescribed without adverse reactions. He notes that he has been making healthy dietary choices. However, he consumes cheese at time. He drinks 1-2 mixed drinks 1-2 times monthly. He is active but has not been exercising. Requests a refill for valacyclovir for cold sores outbreak. No current symptoms. He offers no complaints and denies acute symptoms at this time. PFSH Family History Mother FH: mental illness Social History Housing: House Patient Tobacco Use Status: Never used Tobacco e-Cigarette/Vaping Use: Never Used Second Hand Smoke Exposure: No service: No Current occupational status: unemployed Current occupation: [employer] Current occupational exposures/hazards: No Cognitive needs: No Hearing needs: No Vision needs: No Questionnaire Thrive Questionnaire Date Thrive assessed: 02/29/24 I am a: Patient What is your living situation today?: I have a steady place to live Within the past 12 months, did the food you bought not last and you didn't have the money to get more?: Never true Within the past 12 months, did you worry whether your food would run out before you got money to buy more?: Never true Do you have trouble paying for medicines?: No Do you have trouble getting transportation to medical appointments?: No Do you have trouble paying your heating and electricity bill?: No Do you have trouble taking care of your child, family member or friend?: No Do you have trouble with day-to-day activities such as bathing, preparing meals, shopping, managing finances, etc.?: No Are you currently unemployed and looking for a job?: No Are you interested in more education?: No Please select the resources that you would like help with: None Currently or been in a relationship where the following occur: No concerns reported THRIVE Score: 0 BABAK-7 AMB Questionnaire BABAK-7 Date BABAK - 7 assessed: 02/29/24 Source: Developed by Drs. Fish Daly, Annamarie Lewis, Woody Grayson and colleagues, with an educational cj from [employer]. Review of Systems Const Details: Denies chills, Denies fatigue, Denies fever(s), Denies headache(s) and Denies w eakness Cardiac Denies chest pain, Denies claudication, Denies leg edema, Denies lightheadedness, Denies palpitations, Denies dyspnea, Denies dyspnea on exertion, Denies orthopnea and Denies other (Loss of consciousness) Resp Denies cough, Denies excessive phlegm production, Denies dyspnea, Denies dyspnea on exertion, Denies snoring and Denies wheezing Physical exam (Primary Care) Tobacco/Smoking Status: Tobacco use Status Tobacco use date assessed 12/02/24 12/02/24 11:45 Patient Tobacco Use Status Never used Tobacco 12/02/24 11:45 e-Cigarette/Vaping Use Never Used 12/02/24 11:45 Thrive Assessment: Date of Thrive Assessment Date Thrive assessed 02/29/24 12/02/24 11:45 Currently or been in a relationship where the following occur: No concerns reported Const Other: Patient is alert and oriented x3. Telehealth Telehealth Telehealth Platform: Telephone Location of provider rendering services: practice address Location of patient: address on file Patient Identification confirmed using: Name, : Yes Telehealth method: voice only Patient verbally consented to treatment: Yes Patient verbally consented to billing insurance company: Yes Patient informed of any privacy concerns related to visit: Yes Coding Level of Care Code Tele Est Pt Level 3 (16995) Diagnoses Hyperlipidemia E78.5 Time Spent (min) 15 Assessment & Plan Assessment & Plan (1) Hyperlipidemia: Code(s): E78.5 - Hyperlipidemia, unspecified Category: Medical Plan: Recent triglycerides elevated, 188, HDL is low, 25; previous levels were 181 and 26 respectively. HE been making healthy dietary choices. However, he consumes cheese at time. He drinks 1-2 mixed drinks 1-2 times monthly. He is active but has not been exercising. Advised to limit foods high in saturated fat and avoid foods high in trans fat. Routine exercise encouraged. Fast for 10-12 hours, may drink water, and perform lipid panel blood work a few days before next visit. Follow-up for telehealth visit in 2 months. Return sooner with symptoms or concerns. Verbalized understanding and agreed with the plan Orders: Orders Lipid Panel 2 Months E78.5 - Hyperlipidemia, unspecified Medications: Changed From valacyclovir (Valtrex) 500 mg PO BID To valacyclovir (Valtrex) 500 mg PO BID 14 tabs 0RF 7 days
== END 2024-12-02 13:02 | disposition home or self-care (01) ==
LOC: HO.HMCFM 11:56
PROVIDERS: PCP Nurse Practitioner Family; Visit Provider Nurse Practitioner Family
DX: E78.5 Hyperlipidemia, unspecified (principal)

== ENCOUNTER 2025-01-26 07:30 | Outpatient (REF) | payer BC, SELFPAY ==
--- OUTSIDE RECORDS SUMMARY | 2025-01-26 07:36 | XMS_ITS | Patient Health Record ---
Author Organization [facility] Address [address] [phone] Support Name Relationship Address Phone Whitaker, Wilder Guarantor Unknown [phone] Allergies Allergen (clinical drug ingredient) Drug/Non Drug Allergy documented on EMR Reaction Allergy Type Onset Date Status No Known Drug Allergy Unknown Drug Allergy Active No Known Food Allergy Unknown Drug Allergy Active Reason For Referral No Information Medications Medication SIG (Take, Route, Fr equency, Duration) Notes Start Date End Date Status [place] 3 Active Multi Vitamin - 1 tablet [...] Number of children in household: not answered Yazdanism: not answered Level of education: not answered Family yearly income: not answer ed Tobacco use other than smoking: Question Answer Notes Are you an other tobacco user? 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) Active confirmed Plan Of Treatment No Information Insurance Providers Payer Name Payer Address Payer Phone Subscriber Number Group Number Insured Name Patient Relationship to Insured Coverage Start Date Coverage End Date [facility] [address] [place] [address] [id number] Wilder Whitaker Self - patient is the insured Medical (General) History Medical History History ICD Code No Significant Medical history No known Environmental allergies Surgical History Surgery Date(Month/Year) No Significant surgery Hospitalization History Reason Date(Month/Year) No Significant hospilization
[2025-01-26 08:25] LABS: Cholesterol 105 mg/dL (<200); HDL Cholesterol 28 mg/dL (>40); Triglycerides 172 mg/dL (<150)
== END 2025-01-26 07:31 | disposition home or self-care (01) ==
LOC: HO.LAB 07:30
PROVIDERS: PCP Nurse Practitioner Family; Visit Provider Nurse Practitioner Family
DX: E78.5 Hyperlipidemia, unspecified (principal)
CPT/HCPCS: 36415; 80061

== ENCOUNTER 2025-01-27 13:41 | Outpatient (AMB) | payer BC, SELFPAY ==
--- NOTE | 2025-01-27 13:38 | MHC.PC.OV ---
Intake Visit Reasons: Tele 2 mos HLD Credit Card Control Clerk Required: No Allergies No Known Allergies Allergy (Verified 01/27/25 13:38) Tobacco use date assessed: 01/27/25 Dental Screening Dental Screen Date: 01/27/25 Did you have a dental visit in the last 12 months?: Yes Did you have a dental problem in the last 6 months where you did not have access to dental care?: No Was dental information given to patient?: Patient has dentist HPI HPI Comments History of Present Illness Details 34-year-old male presents for telehealth visit for hyperlipidemia follow-up. He admits to taking his medications as prescribed without adverse reactions. He notes that he has been making healthy dietary changes and exercising routinely. He offers no complaints and denies acute symptoms at this time. PFSH Family History Mother FH: mental illness Social History Housing: House Patient Tobacco Use Status: Never used Tobacco e-Cigarette/Vaping Use: Never Used Second Hand Smoke Exposure: No service: No Current occupational status: unemployed Current occupation: [email or web address] Current occupational exposures/hazards: No Cognitive needs: No Hearing needs: No Vision needs: No Questionnaire Thrive Questionnaire Date Thrive assessed: 02/29/24 BABAK-7 AMB Questionnaire BABAK-7 Date BABAK - 7 assessed: 02/29/24 Source: Developed by Drs. Fish Daly, Annamarie Lewis, Woody Grayson and colleagues, with an educational cj from [employer]. Review of Systems Const Details: Denies chills, Denies fatigue, Denies fever(s), Denies headache(s) and Denies weakness Cardiac Denies chest pain, Denies claudication, Denies leg edema, Denies lightheadedness, Denies palpitations, Denies dyspnea, Denies dyspnea on exertion, Denies orthopnea and Denies other (Loss of consciousness) Resp Denies cough, Denies excessive phlegm production, Denies dyspnea, Denies dyspnea on exertion, Denies snoring and Denies wheezing Physical exam (Primary Care) Tobacco/Smoking Status: Tobacco use Status Tobacco use date assessed 01/27/25 01/27/25 13:39 Patient Tobacco Use Status Never used Tobacco 01/27/25 13:39 e-Cigarette/Vaping Use Never Used 01/27/25 13:39 Thrive Assessment: Date of Thrive Assessment Date Thrive assessed 02/29/24 01/27/25 13:39 Const Other: Patient is alert and oriented x4 Telehealth Telehealth Telehealth Platform: Telephone Location of provider rendering services: practice address Location of patient: address on file Patient Identification confirmed using: Name, : Yes Telehealth method: voice only Patient verbally consented to treatment: Yes Patient verbally consented to billing insurance company: Yes Patient informed of any privacy concerns related to visit: Yes Coding Level of Care Code Tele Est Pt Level 3 (01286) Diagnoses Hyperlipidemia E78.5 Time Spent (min) 10 Assessment & Plan Assessment & Plan (1) Hyperlipidemia: Code(s): E78.5 - Hyperlipidemia, unspecified Category: Medical Plan: Recent triglycerides level is elevated, 172, previous level was 188. Recent HDL level is 28. Advised to limit foods high in saturated fat and avoid foods high in trans fat. Continue current treatment regimen. Routine exercise encouraged. Will recheck lipid panel level in 2-3 months. Follow-up for an extended physical exam in a week. Return sooner with symptoms or concerns. Verbalized understanding and agreed with the plan. Orders: Orders Microalbumin, Random (w Creat) 01/30/25 Z00.00 - Encounter for general adult medical examination without abnormal findings UA CC w/rflx Micro + Cult 01/30/25 Z00.00 - Encounter for general adult medical examination without abnormal findings
--- OUTSIDE RECORDS SUMMARY | 2025-01-27 17:54 | XMS_ITS | Patient Health Record ---
Author Organization [facility] Address [address] [phone] Support Name Relationship Address Phone Whitaker, Wilder Guarantor Unknown [phone] Allergies Allergen (clinical drug ingredient) Drug/Non Drug Allergy documented on EMR Reaction Allergy Type Onset Date Status No Known Drug Allergy Unknown Drug Allergy Active No Known Food Allergy Unknown Drug Allergy Active Reason For Referral No Information Medications Medication SIG (Take, Route, Fr equency, Duration) Notes Start Date End Date Status [place] 3 Active Multi Vitamin - 1 tablet [...] Number of children in household: not answered Oriental Orthodox: not answered Level of education: not answered Family yearly income: not answer ed Tobacco use other than smoking: Question Answer Notes Are you an other tobacco user? 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) Active confirmed Plan Of Treatment No Information Insurance Providers Payer Name Payer Address Payer Phone Subscriber Number Group Number Insured Name Patient Relationship to Insured Coverage Start Date Coverage End Date [facility] [address] [place] [address] [id number] Wilder Whitaker Self - patient is the insured Medical (General) History Medical History History ICD Code No Significant Medical history No known Environmental allergies Surgical History Surgery Date(Month/Year) No Significant surgery Hospitalization History Reason Date(Month/Year) No Significant hospilization
== END 2025-01-27 14:01 | disposition home or self-care (01) ==
LOC: HO.HMCFM 13:42
PROVIDERS: PCP Nurse Practitioner Family; Visit Provider Nurse Practitioner Family
DX: E78.5 Hyperlipidemia, unspecified (principal)

== ENCOUNTER 2025-02-04 08:49 | Outpatient (REF) | payer BC, SELFPAY ==
--- OUTSIDE RECORDS SUMMARY | 2025-02-04 08:56 | XMS_ITS | Patient Health Record ---
Author Organization [facility] Address [address] [phone] Support Name Relationship Address Phone Whitaker, Wilder Guarantor Unknown [phone] Allergies Allergen (clinical drug ingredient) Drug/Non Drug Allergy documented on EMR Reaction Allergy Type Onset Date Status No Known Drug Allergy Unknown Drug Allergy Active No Known Food Allergy Unknown Drug Allergy Active Reason For Referral No Information Medications Medication SIG (Take, Route, Fr equency, Duration) Notes Start Date End Date Status [place] 3 Active Multi Vitamin - 1 tablet [...] Number of children in household: not answered Scientologist: not answered Level of education: not answered Family yearly income: not answer ed Tobacco use other than smoking: Question Answer Notes Are you an other tobacco user? 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) Active confirmed Problem Obstruction of precerebral artery (46003996) 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) Active confirmed Plan Of Treatment No Information Insurance Providers Payer Name Payer Address Payer Phone Subscriber Number Group Number Insured Name Patient Relationship to Insured Coverage Start Date Coverage End Date [facility] [address] [place] [address] [id number] Wilder Whitaker Self - patient is the insured Medical (General) History Medical History History ICD Code No Significant Medical history No known Environmental allergies Surgical History Surgery Date(Month/Year) No Significant surgery Hospitalization History Reason Date(Month/Year) No Significant hospilization
[2025-02-04 11:22] LABS: Appearance Urine Cloudy; Glucose Urine UA Negative (Negative); PH 5.5 (5.0-9.0); Specific Gravity - Urine 1.020 (1.005-1.025); UMIC TRIGGER UACC YES
[2025-02-04 11:46] LABS: Microalbum/Creatinine Ratio Ur 3.2 ug/mg cr (<30)
== END 2025-02-04 08:50 | disposition home or self-care (01) ==
LOC: HO.LAB 08:49
PROVIDERS: PCP Nurse Practitioner Family; Visit Provider Nurse Practitioner Family
DX: Z00.00 Encounter for general adult medical examination without abnormal findings (principal)
CPT/HCPCS: 81001; 82043; 82570

== ENCOUNTER 2025-02-07 11:01 | Outpatient (AMB) | payer BC, SELFPAY ==
--- NOTE | 2025-02-07 11:10 | A.OFFPC_ITS ---
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: Patient has dentist HPI HPI Comments History of Present Illness Details 34-year-old male presents for an extende d physical exam and review of recent lab results. He admits to taking his medications as prescribed without adverse reactions. Acute issue(s) - None Past Medical History - Hyperlipidemia, herpes simplex 1, Gilb ert's syndrome, astigmatism of both eyes, elevated ferritin level, transaminitis, sleep disturbance, TONY on CPAP Social History - Nonsmoker. Does not vape. Drinks 1-2 m ixed drinks once or twice monthly. Denies recreational drug use - Has been making healthy dietary choice s. Exercises routinely. Generally sleep well Health maintenance - Last [facility] - Last dental visit was about 2 months a go - Last Tdap vaccine was in 2017 - Has not been vaccinated for the flu season; declines vaccination Specialists - [facility] [place] [facility] PFSH Family History Mother FH: mental illness Social History Housing: House Patient Tobacco Use Status: Never used Tobacco e-Cigarette/Vaping Use: Never Used Second Hand Smoke Exposure: No service: No Current occupational status: unemployed Current occupation: [employer] Current occupational exposures/hazards: No Cognitive needs: No Hearing needs: No Vision needs: No Questionnaire PHQ-9 Over the last 2 weeks, how often have you been bothered by any of the following problems? 1. Little interest or pleasure in doing things: not at all 2. Feeling down, depressed, or hopeless: not at all 3. Trouble falling or staying asleep, or sleeping too much: several days 4. Feeling tired or having little energy: several days 5. Poor appetite or overeating: not at all 6. Feeling bad about yourself - or that you are a failure or have let yourself or your family down: not at all 7. Trouble concentrating on things, such as reading the newspaper or watching television: not at all 8. Moving or speaking so slowly that other people could have noticed. Or the opposite - being so fidgety or restless that you have been moving around a lot more than usual: not at all 9. Thoughts that you would be better off or of hurting yourself in some way: not at all Total score: 2 Depression Screening Interpretation: Negative Depression Screening Done: Yes 08843 - PHQ-9 Billing: Yes Source: Developed by Drs. Fish Daly, Annamarie Lewis, Woody Grayson and colleagues, with an educational cj from [employer]. Thrive Questionnaire Date Thrive assessed: 02/07/25 I am a: Patient What is your living situation today?: I have a steady place to live Within the past 12 months, did the food you bought not last and you didn't have the money to get more?: Never true Within the past 12 months, did you worry whether your food would run out before you got money to buy more?: Never true Do you have trouble paying for medicines?: No Do you have trouble getting transportation to medical appointments?: No Do you have trouble paying your heating and electricity bill?: No Do you have trouble taking care of your child, family member or friend?: No Do you have trouble with day-to-day activities such as bathing, preparing meals, shopping, managing finances, etc.?: No Are you currently unemployed and looking for a job?: No Are you interested in more education?: No Please select the resources that you would like help with: None Currently or been in a relationship where the following occur: No concerns reported THRIVE Score: 0 AUDIT C Alcohol Use Questionnaire (AUDIT-C) 1. How often do you have a drink containing alcohol?: Monthly or less 2. How many drinks containing alcohol do you have on a typical day when you are drinking?: 1 or 2 3. How often do you have six or more drinks on one occasion?: Less than monthly Total Score: 2 Score Reviewed/Action Taken: Yes BABAK-7 AMB Questionnaire BABAK-7 Date BABAK - 7 assessed: 02/07/25 Feeling nervous, anxious, or on edge: 0 = Not at all Not being able to stop or control worryin = Not at all Worrying too much about different things: 0 = Not at all Trouble relaxin = Not at all Being so restless that it is hard to sit still: 0 = Not at all Becoming easily annoyed or irritable: 0 = Not at all Feeling afraid as if something awful might happen: 0 = Not at all Total BABAK-7 score (0-4 normal; 5-9 mild; 10-14 moderate; 15-21 severe): 0 Source: Developed by Drs. Fish Daly, Annamarie Lewis, Woody Grayson and colleagues, with an educational cj from [employer]. BABAK-7 Assessment Billing BABAK-7 Assessment Tool: BABAK-7 Assessment 09888 Review of Systems Const Details: Denies chills, Denies fatigue, Denies fever(s), Denies headache(s) and Denies weakness HEENT Denies change in vision, Denies dizziness, Denies headache(s), Denies hearing loss, Denies nasal congestion, Denies sinus pain, Denies sinus pressure and Denies sore throat Card Denies chest pain, Denies lightheadedness, Denies dyspnea and Denies other (palpitations) Resp Denies cough, Denies dyspnea and Denies wheezing GI Denies abdominal pain, Denies melena, Denies hematochezia, Denies change in bowel habits, Denies dyspepsia and Denies nausea Denies hematuria and Denies dysuria Musc Denies abnormal gait, Denies myalgias, Denies arthralgias, Denies numbness and Denies tingling Skin/Breast Denies rash, Denies unusual bruising and Denies wounds Neuro Denies abnormal gait, Denies dizziness, Denies headache(s), Denies memory loss, Denies numbness, Denies Sensory deficit (Neuro), Denies tingling and Denies weakness Psych Denies anxiety, Denies depression and Denies memory loss Endo Denies cold intolerance, Denies fatigue, Denies heat intolerance, Denies polydipsia and Denies polyuria Rich/Lymph Denies easy bleeding and Denies easy bruising Aller/Immun Denies wheezing Physical exam (Primary Care) Vital Signs: Last Vital Signs Temp 97.3 F 02/07/25 11:13 Pulse 85 02/07/25 11:13 Resp 13 02/07/25 11:13 BP 132/62 02/07/25 11:13 Pulse Ox 98 02/07/25 11:13 Oxygen Delivery Method Room Air 02/07/25 11:13 BMI result Body Mass Index 36.4 Tobacco/Smoking Status: Tobacco use Status Tobacco use date assessed 02/07/25 02/07/25 11:16 Patient Tobacco Use Status Never used Tobacco 02/07/25 11:10 e-Cigarette/Vaping Use Never Used 02/07/25 11:10 PHQ-9: PHQ-9 Score PHQ-9: Total score 2 02/07/25 11:16 Depression Screening Interpretation: Negative Thrive Assessment: Date of Thrive Assessment Date Thrive assessed 02/07/25 02/07/25 11:10 Currently or been in a relationship where the following occur: No concerns reported Const Other: General: no acute distress, well developed, alert and awake Nutritional Appearance: well nourished Orientation/consciousness: patient oriented x3 HENMT Head: Yes normocephalic and Yes atraumatic Ears: hearing grossly normal bilaterally and TM's normal bilaterally General nose exam: Normal external nose present and Normal nares present Mouth: Normal oral and palatal mucosa present and moist mucous membranes Teeth and gingiva: dentition normal Throat: Yes oropharynx normal Eyes Pupils: Equal, round and reactive pupils present and Pupil accommodation reflex normal EOM: EOMs intact bilaterally Neck Neck: Yes normal visual inspection, Yes no lymphadenopathy and Yes trachea midline Thyroid: Thyroid normal Carotids: no bruits Lymphatic: no lymphadenopathy noted Chest Chest palpation & inspection: normal inspection of the chest Resp Effort & Inspection: normal respiratory effort Auscultation: clear to auscultation bilaterally Cardio Rate: regular rate Rhythm: regular rhythm Heart sounds: S1 normal heart sound present, S2 normal heart sound present, no gallops, no murmurs and no rubs Bruits: no abdominal aortic bruits and no carotid bruits GI Palpation (GI): No Abdominal aortic bruit present, Soft to palpation, nontender, No hepatosplenomegaly present and No Rebound tenderness present Auscultation: normal bowel sounds General: Yes no CVA tenderness Back/Spine/Pelvis Back: no CVA tenderness Cervical Spine: cervical ROM normal and No Cervical spine tenderness Thoracic/Lumbar Spine: thoraco-lumbar ROM normal, No pain with thoraco-lumbar ROM, No thoracic spinal tenderness and No lumbar spinal tenderness Skin General: warm and dry. Normal skin color. Normal skin turgor Lesions: no lesions Rashes: no rashes Trauma: no lacerations or abrasions Wounds: no wounds Nails: normal Neuro General: patient oriented x3, gait normal and CN's II-XI intact bilaterally Cranial nerves: Yes Equal, round and reactive pupils present Cognition (Neuro): normal cognition Gait exam (Neuro): Normal gait present Motor exam (neuro): 5/5 motor strength present throughout Sensory Exam: No Sensory deficit (Neuro) Deep tendon reflexes (DTR's): Right patellar reflex intensity grade: 2+ and Left patellar reflex intensity grade: 2+ Extrem General: Yes normal to inspection, No edema and No calf tenderness Psych Appearance: grossly normal Affect: normal affect Attitude: cooperative Thought process: Normal thought process present Coding Level of Care Code Est Pt Level 3 (60636) Est Pt Prev Care 18-39y(69556) Diagnoses Normal physical examination, routine Z00.00 Hyperlipidemia E78.5 Obesity (BMI 30-39.9) E66.9 Elevated ferritin R79.89 Transaminitis R74.01 Additional Codes BABAK-7 Assessment Billing - BABAK-7 Assessment Tool: BABAK-7 Assessment 86894 ([id number]) PHQ-9 - 71129 - PHQ-9 Billing: Yes ([id number]) Assessment & Plan Assessment & Plan (1) Normal physical examination, routine: Code(s): Z00.00 - Encounter for general adult medical examination without abnormal findings Category: Medical Plan: No significant functional limitations noted. Continue current treatment regimen. Healthy diet and routine exercise encouraged. Perform fasting lab work a few days before next visit. Follow-up in 2-3 months for transfer of care with a new provider within the practice. Return sooner with symptoms or concerns. Verbalized understanding and agreed with the plan. (2) Hyperlipidemia: Code(s): E78.5 - Hyperlipidemia, unspecified Category: Medical Plan: Recent triglyceride level is mildly elevated, 172, previous level was 188, LDL level is 28. Continue current treatment regimen. Advised to limit foods high in saturated fat and avoid foods high in trans fat. Routine exercise encouraged. Fast for 10-12 hours, may drink water, and perform lipid panel blood work a few days before next visit. Follow-up in 2-3 months. Verbalized understanding and agreed with the plan. (3) Obesity (BMI 30-39.9): Code(s): E66.9 - Obesity, unspecified Category: Medical Plan: He currently weighs 225 lb, BMI is 36.4. Declines referral to preload supervisor/dietitian or weight management clinic and states that he will continue to make healthy lifestyle changes. Healthy diet and routine exercise encouraged. Follow-up as needed. Verbalized understanding and agreed with the plan. (4) Elevated ferritin: Code(s): R79.89 - Other specified abnormal findings of blood chemistry Category: Medical Plan: Will recheck ferritin and iron level and make changes as needed. (5) Transaminitis: Code(s): R74.01 - Elevation of levels of liver transaminase levels Category: Medical Plan: Will recheck lipid panel and make changes as needed. Orders: Orders Lipid Panel 2 Months E78.5 - Hyperlipidemia, unspecified Liver Panel 2 Months R74.01 - Elevation of levels of liver transaminase levels IRON PROFILE Today E78.5 - Hyperlipidemia, unspecified Ferritin Today R79.89 - Other specified abnormal findings of blood chemistry
[2025-02-07 11:13] VITALS: BP 132/62; PULSE 85; RESP 16; TEMP 36.3; O2SAT 98; BMI 36.4
--- OUTSIDE RECORDS SUMMARY | 2025-02-07 14:32 | XMS_ITS | Patient Health Record ---
Author Organization [facility] Address [address] [phone] Support Name Relationship Address Phone Whitaker, Wilder Guarantor Unknown [phone] Allergies Allergen (clinical drug ingredient) Drug/Non Drug Allergy documented on EMR Reaction Allergy Type Onset Date Status No Known Drug Allergy Unknown Drug Allergy Active No Known Food Allergy Unknown Drug Allergy Active Reason For Referral No Information Medications Medication SIG (Take, Route, Fr equency, Duration) Notes Start Date End Date Status Lerna 3 Active Multi Vitamin - 1 tablet [...] Number of children in household: not answered Confucianist: not answered Level of education: not answered Family yearly income: not answer ed Tobacco use other than smoking: Question Answer Notes Are you an other tobacco user? 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 confirmed Plan Of Treatment No Information Insurance Providers Payer Name Payer Address Payer Phone Subscriber Number Group Number Insured Name Patient Relationship to Insured Coverage Start Date Coverage End Date [facility] [address] [place] [phone] [id number] Wilder Whitaker Self - patient is the insured Medical (General) History Medical History History ICD Code No Significant Medical history No known Environmental allergies Surgical History Surgery Date(Month/Year) No Significant surgery Hospitalization History Reason Date(Month/Year) No Significant hospilization
== END 2025-02-07 11:43 | disposition home or self-care (01) ==
LOC: HO.HMCFM 11:02
PROVIDERS: PCP Nurse Practitioner Family; Visit Provider Nurse Practitioner Family
DX: Z00.00 Encounter for general adult medical examination without abnormal findings (principal); E78.5 Hyperlipidemia, unspecified; E66.9 Obesity, unspecified; Z68.36 Body mass index [BMI] 36.0-36.9, adult; R79.89 Other specified abnormal findings of blood chemistry; R74.01 Elevation of levels of liver transaminase levels

== ENCOUNTER → 2025-02-07 11:01 | Outpatient (BNVA) | payer BC, SELFPAY | PROVIDERS: PCP Nurse Practitioner Family; Visit Provider Nurse Practitioner Family | DX: Z00.00 Encounter for general adult medical examination without abnormal findings (principal); E78.5 Hyperlipidemia, unspecified; E66.9 Obesity, unspecified; R79.89 Other specified abnormal findings of blood chemistry; R74.01 Elevation of levels of liver transaminase levels | CPT/HCPCS: 96127 ==